=== PATIENT | female | born 1940 | race Caucasian/White ===

== ENCOUNTER 2017-12-03 06:37 | Inpatient (IN) | payer OTHER, SELFPAY ==
[2017-11-10 08:33] VITALS: BMI 28.7
[2017-12-03] VITALS (13 sets, daily range): BP systolic 128–167; BP diastolic 53–77; PULSE 58–94; RESP 12–20; TEMP 36.1–36.7; O2SAT 94–100; BMI 28.5
--- NOTE | 2017-12-03 | DI.RAD.S_ITS ---
PROCEDURE: XR LUMBAR SPINE 2-3V INDICATIONS: L3-4, L5-S1 TLIF TECHNIQUE: 2 views of the lumbar spine were acquired. COMPARISON: [facility], , -SPINE 2-3 VIEWS, 01/25/2016, 12:31. FINDINGS: Bones: AP and lateral intraoperative images showing additional disc spacers and bilateral posterior fusion L3-S1 Soft tissues: Overlying bowel gas pattern is normal. No suspicious soft tissue calcifications. IMPRESSION: Intraoperative documentation of posterior discectomy and fusion lower lumbar spine. Dictated by: Gopi Sage M.D. on 12/03/2017 at 12:36 Approved by: Gopi Sage M.D. on 12/03/2017 at 12:37
[2017-12-03] MEDS: LACTATED RINGERS 1,000 ML 42 ML IV ×3 (07:30→11:16)
--- NOTE | 2017-12-03 07:59 | PM.PREOP ---
Pre-operative Note Interval Note Pre-op Check: History & Physical Reviewed by Physician, Exam Performed and History & Physical exam performed today
[2017-12-03] MEDS: CEFAZOLIN 2 GM/100 ML FROZ.PIGGY IV ×2 (08:00→15:31)
--- NOTE | 2017-12-03 08:44 | SUR.OPER ---
Prone on spine table, head in foam head support, padded chest and pelvic supports, gel pad at knees, lower legs supported by pillows; nipples, genitalia and toes free of pressure, arms secured on foam padded arm boards at <90 degrees abduction. Tape over blanket at thigh secured to table.
[2017-12-03] MEDS: BUPIVACAINE LIPOSOME 266 MG/20 ML VIAL INJ (08:50)
[2017-12-03] MEDS: BUPIVACAINE 0.25% W/ EPI 50 ML VIAL 30 ML INJ (08:52)
--- NOTE | 2017-12-03 11:23 | SUR.OPER ---
4 screws removed, (588.706) and 2 put back in.
--- NOTE | 2017-12-03 12:03 | P.OP_ITS ---
Operative Date/Time/Diagnoses Date of procedure: 12/03/17 Time of procedure: 08:17 Pre-op diagnosis: 1. 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 L3-4, L5-S1 spinal stenosis 3. L3-4, L5-S1 spondylosis with radiculopathy 4. Lumbar scoliosis Post-op diagnosis: same Procedure & Clinicians Procedure: 1. L3-4, L5-S1 posterolateral and posterior interbody fusion 2. L3-4, L5-S1 posterior interbody cage placement 3. L4-5 posterior non-segmental instrumentation removal 4. L4-5 revision laminectomy with exploration of fusion 5. L3-4, L4-5, L5-S1 posterior segmental instrumentation with pedicle screw placement 6. L4-5 posterolatearl fusion 7. [place] of bone marrow from iliac crest through a separate incision 8. Utilization of microsurgical technique and operating microscope Same procedure as scheduled: Yes Indications: Patient has been having chronic back pain and worsening lumbar radiculopathy. She had prior hx of L4-5 fusion with good relief of pain for the last year. Recently her pain worsened again. Patient failed multiple conservative management with worsening pain weakness and numbness in her lower extremity. Patient has been having difficulty performing activity of daily living. After discussing risks benefits of treatment options, patient elected proceed with surgery. Surgeon: Bonita Sy Director Instrumentation: Kim Parada Click Yes if Unassisted: No Anesthesia Type: General Operative Notes Closure Type: primary Specimen(s): none sent Implants & Drains: Globus Revolve screws and Rise cage Applied: catheter Estimated Blood Loss (mL): 200 Blood products transfused: none Procedure in detail: Patient was seen in the preoperative area. Risks and benefits of the surgery was discussed with the patient. Informed consent was obtained from the patient and placed in the chart. Surgical site was marked. Patient was taken to the operative room. General anesthesia was administered. Prophylactic antibiotic was given to the patient less than 30 min before the incision was made. Patient was placed into a prone position on the Richard table. Patient's back was then prepped and draped in the sterile fashion. Time- out was performed at this time. Using patient's previous scar incision was made over the L4-5 interval on the right side. Fascia was incised in line with skin incision. Patient's previously placed hardware over the L4-5 level was identified by dissecting down to the level the hardware using a Bovie and a Manley. The locking caps which was removed using globus screwdriver. The locking jose was then removed from the tulips of the pedicle screws using a Mihir. The pedicle screws were then removed using the screwdriver. The screws were found to have good purchase. The Globus and MARS retractors was then placed into the wound and docked onto the L3, L4 lamina using C-arm guidance. Using microsurgical technique and operating microscope a laminectomy facetectomy was performed by removing the L3 and L4 lamina and the L3-4, L4-5 facet. The disc space at L3-4, L4-5 level was identified next. And a total diskectomy was performed at L3-4, L4-5 with level. The endplates were decorticated using a rasp and shaver. The total diskectomy and decortication was performed at L3-4 L4-5 level in order to to accomplish a L3-4 L4-5 fusion. The local bone from the laminectomy and facetectomy was saved for local bone grafting. After the total diskectomy and decortication was completed, Globus viacell bone graft material was combined with local bone that was harvested earlier. At this time, a separate skin is incision was made over the iliac crest. A Jamshidi needle was inserted into the iliac crest through a separate skin incision. 5 cc of bone marrow aspiration was obtained through the separate skin incision using a Jamshidi needle from the iliac crest. The bone marrow aspiration was combined with local bone and the via cell bone grafting material. The bone grafting material was placed into the L3- 4 L4-5 interbody space along with a expandable cage. Two cages were placed into the L3-4, L4-5 interbody space with once cage at each level. The cage was expanded to its maximum height using the torque limiting screwdriver. At this time a mirror image incision was made on the left side. The fascia was incised in line with the skin incision. Patient's previously placed hardware on the left side was then removed in the same fashion as it was on the right side. The hardware was also found to have good purchase. The fusion mass on the left side was exposed by performing a left-sided hemilaminectomy at L4-5 level. The hemilaminectomy was performed using the Kerrison rongeur to undercut the lamina as well removing additional epidural scar tissue for purpose of decompressing the epidural space. The fusion mass was explored and was found have visible motion indicating pseudoarthrosis. Globus MARS retractor was inserted and docked onto the L3-4 L4-5 L5-S1 posterolateral gutter. Using the power drill, posterior-lateral decortication was performed at L3-4 L4-5 L5-S1 level until bleeding cortical bone was identified. The remaining bone grafting material was placed into the L3-4 L4-5 L5-S1 posterior lateral gutter he order to accomplish posterolateral fusion at the L3-4 L4-5 L5-S1 level. Using the double C-arm technique, pedicle screws were placed into the L3-L4 L5 and S1 pedicles bilaterally. This was done by placing the Jamshidi needle into the pedicles, then placing the guidewires over the Jamshidi needle, and finally placing the cannulated screws over the guidewires bilaterally. Total 8 pedicle screws were placed. After the pedicle screws were placed, 2 titanium rods was locked into the heads of the pedicle screws using locking caps and torque limiting screwdriver. After all the hardware was placed, and confirmed with AP and lateral C-arm imaging, the wound was then irrigated with sterile normal saline and packed with Ray-Estela gauze for 3 min to accomplish hemostasis. After the gauze was removed the deep fascia was closed with #1 Vicryl suture. The subcutaneous layer was closed with 2-0 Vicryl. The skin was closed with skin esther. Patient tolerated the procedure well. There were no complications. Complications: none Condition: stable Disposition: Acute Care Plan for aftercare: Admit to inpatient hospital
[2017-12-03] MEDS: fentaNYL 100 MCG/2 ML INJ 50 MCG IV ×2 (12:33→12:52)
[2017-12-03] MEDS: LORazepam 2 MG/ML SYRINGE 0.25 MG IV (12:34)
[2017-12-03] MEDS: HYDROMORPHONE 0.5 MG INJ IV (14:00)
[2017-12-03] MEDS: SODIUM CHLORIDE 0.9% 1,000 ML 100 ML IV ×2 (14:06→23:05)
[2017-12-03] MEDS: OXYCODONE IR 5 MG TABLET 10 MG PO ×3 (14:06→23:05)
--- NOTE | 2017-12-03 16:30 | PT.IIE ---
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) Spinal stenosis, lumbar region without neurogenic claudication (12/03/17) Arthrodesis status (12/03/17) Surgery Performed Operation Date: 12/03/17 07:45 Actual Procedures p L3-4,L5-S1 TLIF; L4-5 Lumbar HWR, Explor Fusion; Repeat Laminectomy, L3-4, L4-5,L5-S1 PSF w/Instryessica - Bonita Sy MD Surgical History (Last Updated 11/10/17 @ 09:13 by Rosie Rashid RN) History of arthroplasty of left knee (Acute) History of lumbar surgery (Acute) Hx of appendectomy (Acute) Hx of arthroscopy of right knee (Acute) Hx of gastric bypass (Acute) Hx of hand surgery (Acute) S/P epidural steroid injection (Acute) Medical History (Last Updated 11/10/17 @ 09:13 by Rosie Rashid RN) Anemia (Acute) Carotid stenosis (Acute) Easy bruisability (Acute) Fragile skin (Acute) HTN (hypertension) (Acute) Heart murmur (Acute) History of hysterectomy (Acute) Melanoma (Acute) Numbness and tingling of both feet (Acute) Retinal vascular occlusion, left eye (Acute) Rosacea (Acute) Physical Therapy Inpatient Evaluation/Re-Eval M1 PT/OT-IP Prior Functional Status Start: 12/03/17 17:12 Freq: NEEDED Status: Active Protocol: Document 12/03/17 16:30 AB (Rec: 12/03/17 17:23 AB [id number]) Medical Review Prior Functional Status Medical History Reviewed Yes Communication able to make needs known Mobility and Gait pt stated that she is independent with all mobilities and ambulation without AD but occasionally uses a SPC Social History Household Members none Living Arrangements House Number of Floors (Floors) One Floor Number of Stairs To Enter/Railing? 3 steps to enter with bilateral wide rails and can only hold on to one rail at a time Home Environment Standard Height Toilet Tub/Shower Home Equipment Four Wheel Walker Straight Cane Grab Bars Near Toilet Grab Bars In Shower Employment Status Retired Additional Social History Comment stated that her bed is not too high but has a step stool to get up into to get into the bed; stated that she can sit on EOB. M2 PT-IP Current Condition Start: 12/03/17 17:12 Freq: NEEDED Status: Active Protocol: Document 12/03/17 16:30 AB (Rec: 12/03/17 17:23 AB [id number]) Physical Therapy Current Condition Current Condition Evaluation Date 12/03/17 Treatment Diagnosis s/p L3-4, L5S1 TLIF; L4-5 revision laminectomy; difficuties in walking Onset Date 12/03/17 Precautions Lumbar Precautions Log Roll No Twisting Limit Bending Lifting Restriction of 10 lbs Gait Belt above Incisional Area M3 PT-IP Subjective Start: 12/03/17 17:12 Freq: NEEDED Status: Active Protocol: Document 12/03/17 16:30 AB (Rec: 12/03/17 17:23 AB [id number]) Subjective Physical Therapy Visit Type Type Initial Evaluation Visit Start Time 16:30 Visit Stop Time 16:55 Total Visit Minutes 25 Number of MAT MACHINE OPERATOR Visits 0 Physical Therapy Visit Comments Patient Comments i am ready to move Therapy Pain Assessment Pain When Pain Assessed At Rest Pain Present Pain Present Pain Reported Location Lower Back Intensity 5 Scale Used Numeric (1 - 10) Description Spasm Pain Management Techniques Re-positioning M4 PT-IP Mobility and Gait Start: 12/03/17 17:12 Freq: NEEDED Status: Active Protocol: Document 12/03/17 16:30 AB (Rec: 12/03/17 17:23 AB [id number]) PT-Bed Mobility Assessment Rolling Level of Assist Maximal Assistance Supine to Sit Supine to Sit Maximum Assistance 1 Person Assistance Sit to Supine Sit to Supine Maximum Assistance 1 Person Assistance PT-Transfer Assessment Sit to and From Stand Sit to and from Stand Moderate Assistance Equipment Transfer Assistive Device Gait Belt Front Wheeled Walker Gait Assessment Gait Gait Assistance Required: Moderate Assistance Distance (Feet) (feet) 3 Able to Maintain Weight Bearing Status Yes During Gait Assistive Devices Assistive Device Gait Belt Front Wheeled Walker Orthotic/Prosthetic Devices or Brace: No Factors Limiting Gait Function Factors Limiting Gait Function Decreased Activity Tolerance Decreased Strength Difficulty Following Directions Pain Poor Balance Poor Safety Awareness Comments Gait Comments pt took side steps towards HOB . C/o slight dizziness and wants to lay back down in bed. BP: 146/89 PT-Balance Assessment Sitting Balance and Reactions Static Sitting Balance Ability Good Dynamic Sitting Balance Ability Good Standing Balance and Reactions Static Standing Balance Ability Fair Dynamic Standing Balance Ability Fair Device Used FWW M5 PT-IP Objective Assessments Start: 12/03/17 17:12 Freq: NEEDED Status: Active Protocol: Document 12/03/17 16:30 AB (Rec: 12/03/17 17:23 AB [id number]) Orientation Orientation/Cognition Level of Alertness Confusional State Orientation Name Date Place Safety Awareness Decreased Safety Awareness Memory Description Short Term Impaired Gross Range of Motion Lower Extremity ROM Assessment Within Functional Limits Strength Lower Extremity Strength Assessment Within Functional Limits M6 PT-IP Treatment Start: 12/03/17 17:12 Freq: NEEDED Status: Active Protocol: Document 12/03/17 16:30 AB (Rec: 12/03/17 17:23 AB [id number]) Physical Therapy Treatment Education Education Provided Precautions Weight Bearing Status Post-Op Packet Safety M7 PT-IP Assessment and Plan Start: 12/03/17 17:12 Freq: NEEDED Status: Active Protocol: Document 12/03/17 16:30 AB (Rec: 12/03/17 17:23 AB [id number]) PT Summary Assessment and Plan Potential Rehabilitation Potential Fair Status of Condition at Evaluation Evolving Summary Impairments Pain ROM Strength Balance Cognition Bed Mobility Transfers Gait Activity Tolerance Assessment Summary pt just had surgery this morning and was not able to tolerate much activity. pt does not have any assistance at home and will require SNF rehab to improve mobility and independence prior to d/c home . Goals Bed Mobility Goal Standby Assistance Transfer Goal Standby Assistance Front Wheeled Walker Four Wheeled Walker Gait Goal Standby Assistance Front Wheel Walker Four Wheel Walker Gait Distance 100 Other Goals up/down 3 steps with 1 rail SBA Days to Meet Goals 3 Frequency of Treatment Frequency Of Treatment Twice a Day Treatment Plan Physical Therapy Treatment Plan Bed Mobility Training Transfer Training Gait Training Therapeutic Exercise Balance Retraining Post Op Education Discharge Planning Hot or Cold Pack Neuromuscular Re-ed Coordination Retraining Manual Therapy Other Recommendations and Next Treatment ambulation Focus Recommendations To Nursing Amount of Assist Needed 1 Person Assist Discharge Recommendations PT Discharge Recommendations SNF Rehab Equipment Needed for Home Before FWW if pt goes home or is not Discharge safe with 4WW
--- NOTE | 2017-12-03 16:33 | PC.NURSE ---
Ortho: Recieved from pacu, sleepy but does arouse. Can move feet, tailoring teacher equal. Awakens when name called. Initially pain at 4 when arrived but then increased to 10/10 and received oral meds and some dilaudid IVP. Since then has been comfortable. Was able to doze once again. Ppp, feet=/warm, brisk cap refill. Low back dressing is c/d/i. Son at bedside. Hand tailoring teacher equal, oriented x2.
[2017-12-03] MEDS: hydrOXYzine pamoate 25 MG CAPSULE PO (16:34)
[2017-12-03] MEDS: SENNOSIDES 8.6 MG TABLET 17.2 MG PO (23:04)
[2017-12-03] MEDS: DOCUSATE 100 MG CAPSULE PO (23:05)
[2017-12-04] VITALS (7 sets, daily range): BP systolic 113–132; BP diastolic 46–67; PULSE 66–75; RESP 15–19; TEMP 36.9–37.4; O2SAT 92–98
[2017-12-04] MEDS: CEFAZOLIN 2 GM/100 ML FROZ.PIGGY IV (00:29)
[2017-12-04] MEDS: SODIUM CHLORIDE 0.9% 1,000 ML 100 ML IV (00:30)
[2017-12-04] MEDS: OXYCODONE IR 5 MG TABLET 10 MG PO ×3 (04:41→10:44)
[2017-12-04 06:15] LABS: Hematocrit 26.1 % (36-46); Hemoglobin 8.5 g/dL (12.0-16.0)
--- NOTE | 2017-12-04 07:41 | PM.PN.1 ---
Subjective Date Patient Seen: 12/04/17 Time Patient Seen: 07:42 Interval history: Patient seen beside s/p L3-4, L5-S1 TLIF, L4-5 lumbar HWR, exploration of fusion, repeat laminectomy, and L3-S1 PSF with instrumentation POD #1. She is doing well, her pain is well controlled and she denies fevers/chills. She denies any numbness/tingling in her lower extremities. She has not been up with PT yet. Exam Vital Signs (past 8 hours): - 12/03/17 23:45 12/04/17 04:31 Temperature 98.0 F 99.3 F Pulse Rate 71 70 Respiratory Rate 16 16 Blood Pressure 128/61 H 126/59 H Pulse Oximetry 94 93 Oxygen Delivery Method Room Air Oxygen Flow Rate 0 Narrative Exam Narrative: Patient is well-developed well-nourished in no acute distress. Patient alert and oriented x3. Examination surgical dressings clean dry and intact. She has full range of motion of the ankle 2+ pulses and full sensation. Calves are soft and compressible. Objective Labs Result Diagrams: 12/04/17 05:53 Labs: Laboratory Results - last 24 hr 12/04/17 05:53 Hgb 8.5 L Hct 26.1 L Assessment & Plan (1) Lumbar stenosis: Current visit: Yes Status: Acute (2) Osteoarthritis of spine with radiculopathy, lumbar region: Current visit: Yes Status: Acute Plan: Assessment/Plan Narrative: Patient is POD #1 s/p L3-4, L5-S1 TLIF, L4-5 lumbar HWR, exploration of fusion, repeat laminectomy, and L3-S1 PSF with instrumentation at [facility]. We will continue with pain control and SCDs for DVT prophylaxis. She will get up with therapy and if everything goes well possible discharge for tomorrow. All questions were answered at the time of examination. Quality VTE Deep Vein Thrombosis/Pulmonary Embolism Present on Admission: No
--- NOTE | 2017-12-04 07:44 | P.PN_ITS ---
Subjective Date Patient Seen: 12/04/17 Time Patient Seen: 07:42 Interval history: Patient seen beside s/p L3-4, L5-S1 TLIF, L4-5 lumbar HWR, exploration of fusion, repeat laminectomy, and L3-S1 PSF with instrumentation POD #1. She is doing well, her pain is well controlled and she denies fevers/ chills. She denies any numbness/tingling in her lower extremities. She has not been up with PT yet. Exam Vital Signs (past 8 hours): - 12/03/17 23:45 12/04/17 04:31 Temperature 98.0 F 99.3 F Pulse Rate 71 70 Respiratory Rate 16 16 Blood Pressure 128/61 H 126/59 H Pulse Oximetry 94 93 Oxygen Delivery Method Room Air Oxygen Flow Rate 0 Narrative Exam Narrative: Patient is well-developed well-nourished in no acute distress. Patient alert and oriented x3. Examination surgical dressings clean dry and intact. She has full range of motion of the ankle 2+ pulses and full sensation. Calves are soft and compressible. Objective Labs Result Diagrams: 12/04/17 05:53 Labs: Laboratory Results - last 24 hr 12/04/17 05:53 Hgb 8.5 L Hct 26.1 L Assessment & Plan (1) Lumbar stenosis: Current visit: Yes Status: Acute (2) Osteoarthritis of spine with radiculopathy, lumbar region: Current visit: Yes Status: Acute Plan: Assessment/Plan Narrative: Patient is POD #1 s/p L3-4, L5-S1 TLIF, L4-5 lumbar HWR, exploration of fusion, repeat laminectomy, and L3-S1 PSF with instrumentation at [facility]. We will continue with pain control and SCDs for DVT prophylaxis. She will get up with therapy and if everything goes well possible discharge for tomorrow. All questions were answered at the time of examination. Quality VTE Deep Vein Thrombosis/Pulmonary Embolism Present on Admission: No
--- NOTE | 2017-12-04 09:15 | PT.IPTN ---
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) Other spondylosis with radiculopathy, lumbar region (12/03/17) Spinal stenosis, lumbar region without neurogenic claudication (12/03/17) Arthrodesis status (12/03/17) Surgery Performed Operation Date: 12/03/17 07:45 Actual Procedures p L3-4,L5-S1 TLIF; L4-5 Lumbar HWR, Explor Fusion; Repeat Laminectomy, L3-4, L4-5,L5-S1 PSF w/Instru - Bonita Sy MD Physical Therapy Treatment Note M2 PT-IP Current Condition Start: 12/03/17 17:12 Freq: NEEDED Status: Active Protocol: Document 12/03/17 16:30 AB (Rec: 12/03/17 17:23 AB [id number]) Physical Therapy Current Condition Current Condition Evaluation Date 12/03/17 Treatment Diagnosis s/p L3-4, L5S1 TLIF; L4-5 revision laminectomy; difficuties in walking Onset Date 12/03/17 Precautions Lumbar Precautions Log Roll No Twisting Limit Bending Lifting Restriction of 10 lbs Gait Belt above Incisional Area M3 PT-IP Subjective Start: 12/03/17 17:12 Freq: NEEDED Status: Active Protocol: Document 12/04/17 09:15 AB (Rec: 12/04/17 11:43 AB [id number]) Subjective Physical Therapy Visit Type Type Treatment Note Visit Start Time 09:15 Visit Stop Time 09:31 Total Visit Minutes 16 Number of CERTIFIED MEETING PROFESSIONAL Visits 0 Physical Therapy Visit Comments Patient Comments pt just got up with OT but requested to go back to bed; c /o dizziness Therapy Pain Assessment Pain When Pain Assessed At Rest Pain Present Pain Present Pain Reported Location Lower Back Intensity 5 Scale Used Numeric (1 - 10) Pain Management Techniques Timing of Activity with Medications M4 PT-IP Mobility and Gait Start: 12/03/17 17:12 Freq: NEEDED Status: Active Protocol: Document 12/04/17 09:15 AB (Rec: 12/04/17 11:43 AB [id number]) PT-Bed Mobility Assessment Sit to Supine Sit to Supine Maximum Assistance 1 Person Assistance PT-Transfer Assessment Sit to and From Stand Sit to and from Stand Maximum Assistance 1 Person Assistance Use of Upper Extremities Equipment Transfer Assistive Device Gait Belt Front Wheeled Walker Orthotic/Prosthetic Devices or Brace: No Transfers Transfer Destination Bed Transfer Technique was able to take a few steps to get into the bed using FWW Transfer Ability Level of Assist Maximum Assistance 1 Person Assistance Comments Mobility Comments BP sitting on chair prior to transfer: 96/42 BP after transfers: 149/53 M5 PT-IP Objective Assessments Start: 12/03/17 17:12 Freq: NEEDED Status: Active Protocol: Document 12/03/17 16:30 AB (Rec: 12/03/17 17:23 AB [id number]) Orientation Orientation/Cognition Level of Alertness Confusional State Orientation Name Date Place Safety Awareness Decreased Safety Awareness Memory Description Short Term Impaired Gross Range of Motion Lower Extremity ROM Assessment Within Functional Limits Strength Lower Extremity Strength Assessment Within Functional Limits M6 PT-IP Treatment Start: 12/03/17 17:12 Freq: NEEDED Status: Active Protocol: Document 12/04/17 09:15 AB (Rec: 12/04/17 11:43 AB [id number]) Physical Therapy Treatment Education Education Provided Precautions Safety M7 PT-IP Assessment and Plan Start: 12/03/17 17:12 Freq: NEEDED Status: Active Protocol: Document 12/04/17 09:15 AB (Rec: 12/04/17 11:43 AB [id number]) PT Summary Assessment and Plan Potential Rehabilitation Potential Fair Summary Impairments Pain ROM Strength Balance Sensation Cognition Bed Mobility Transfers Gait Activity Tolerance Progress Towards Goals Slow Progress due to Pain Slow Progress due to Activity Tolerance Assessment Summary pt continues to require mod to max A with all mobilities and presents with decreas activity tolerance. pt will require SNF rehab to improve strength and function. Goals Bed Mobility Goal Standby Assistance Transfer Goal Standby Assistance Front Wheeled Walker Four Wheeled Walker Gait Goal Standby Assistance Front Wheel Walker Four Wheel Walker Gait Distance 100 Other Goals up/down 3 steps with 1 rail SBA Days to Meet Goals 3 Frequency of Treatment Frequency Of Treatment Twice a Day Treatment Plan Physical Therapy Treatment Plan Bed Mobility Training Transfer Training Gait Training Therapeutic Exercise Balance Retraining Post Op Education Discharge Planning Hot or Cold Pack Neuromuscular Re-ed Coordination Retraining Manual Therapy Recommendations To Nursing Amount of Assist Needed 1 Person Assist Discharge Recommendations PT Discharge Recommendations SNF Rehab Equipment Needed for Home Before FWW if pt goes home or is not Discharge safe with 4WW
[2017-12-04] MEDS: DOCUSATE 100 MG CAPSULE PO ×2 (09:39→21:18)
--- NOTE | 2017-12-04 10:14 | OT.IP.EVAL ---
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) Other spondylosis with radiculopathy, lumbar region (12/03/17) Spinal stenosis, lumbar region without neurogenic claudication (12/03/17) Arthrodesis status (12/03/17) Surgery Performed Operation Date: 12/03/17 07:45 Actual Procedures p L3-4,L5-S1 TLIF; L4-5 Lumbar HWR, Explor Fusion; Repeat Laminectomy, L3-4, L4-5,L5-S1 PSF w/Instryessica Sy MD Past Medical History (Last Updated 11/10/17 @ 09:13 by Rosie Rashid RN) Anemia (Acute) Carotid stenosis (Acute) Easy bruisability (Acute) Fragile skin (Acute) HTN (hypertension) (Acute) Heart murmur (Acute) History of hysterectomy (Acute) Melanoma (Acute) Numbness and tingling of both feet (Acute) Retinal vascular occlusion, left eye (Acute) Rosacea (Acute) Surgical History (Last Updated 11/10/17 @ 09:13 by Rosie Rashid RN) History of arthroplasty of left knee (Acute) History of lumbar surgery (Acute) Hx of appendectomy (Acute) Hx of arthroscopy of right knee (Acute) Hx of gastric bypass (Acute) Hx of hand surgery (Acute) S/P epidural steroid injection (Acute) Occupational Therapy Inpatient Evaluation/Re-Eval M1 PT/OT-IP Prior Functional Status Start: 12/03/17 17:12 Freq: NEEDED Status: Active Protocol: Document 12/03/17 16:30 AB (Rec: 12/03/17 17:23 AB [id number]) Medical Review Prior Functional Status Medical History Reviewed Yes Communication able to make needs known Mobility and Gait pt stated that she is independent with all mobilities and ambulation without AD but occasionally uses a SPC Social History Household Members none Living Arrangements House Number of Floors (Floors) One Floor Number of Stairs To Enter/Railing? 3 steps to enter with bilateral wide rails and can only hold on to one rail at a time Home Environment Standard Height Toilet Tub/Shower Home Equipment Four Wheel Walker Straight Cane Grab Bars Near Toilet Grab Bars In Shower Employment Status Retired Additional Social History Comment stated that her bed is not too high but has a step stool to get up into to get into the bed; stated that she can sit on EOB. M1 PT/OT-IP Prior Functional Status Start: 12/04/17 09:56 Freq: NEEDED Status: Active Protocol: Document 12/04/17 09:29 ADH (Rec: 12/04/17 10:14 ADH [email or web address]) Medical Review Prior Functional Status Medical History Reviewed Yes Communication able to make needs known Mobility and Gait pt stated that she is independent with all mobilities and ambulation without AD but occasionally uses a SPC Activities of Daily Living and IADL's Pt reports she was previously mod I with all tasks, including taking care of her dog. Social History Household Members none Living Arrangements House Number of Stairs To Enter/Railing? 3 with hand rail Home Environment Standard Height Toilet Walk in Shower Home Equipment Shower Seat without Backrest Grab Bars In Shower Employment Status Retired Additional Social History Comment no assistance available at home M2 OT-IP Current Condition Start: 12/04/17 09:56 Freq: Status: Active Protocol: Document 12/04/17 09:29 ADH (Rec: 12/04/17 10:14 [facility] [id number]) Occupational Therapy Current Condition Current Condition Evaluation Date 12/04/17 Treatment Diagnosis L3-L5 Diagnosis Onset Date 18 Post Operative Precautions Lumbar Precautions Log Roll No Twisting Limit Bending Lifting Restriction of 10 lbs Gait Belt above Incisional Area M3 OT- IP Subjective and Pain Start: 12/04/17 09:56 Freq: Status: Active Protocol: Document 12/04/17 09:29 ADH (Rec: 12/04/17 10:14 ADH [email or web address]) OT- Subjective Occupational Therapy Visit Type Type Initial Evaluation Visit Start Time 08:41 Visit Stop Time 09:29 Total Visit Minutes 48 OT Pain Assessment Pain When Pain Assessed During Mobility Pain Present Pain Present Pain Reported Location Lower Back Intensity 4 Scale Used Numeric (1 - 10) Management Techniques Distraction Elevation Modification of Treatment Re-positioning Timing of Activity with Medications M4 OT- IP ADL's Start: 12/04/17 09:56 Freq: Status: Active Protocol: Document 12/04/17 09:29 ADH (Rec: 12/04/17 10:14 ADH [email or web address]) OT [id number] General Evaluation Self-Feeding Ability Independent OT ADL-Dressing General Eval Lower Body Dressing Ability Maximum Assistance Areas Needing Assistance Socks Shoes OT ADL-Toileting General Evaluation Toileting Ability Maximum Assistance Comments OT Toileting Comments catheter. M6 OT- IP Functional Cognition Start: 12/04/17 09:56 Freq: Status: Active Protocol: Document 12/04/17 09:29 ADH (Rec: 12/04/17 10:14 ADH [email or web address]) Cognitive Factors Limiting Selfcare Function Cognitive Ability Level of Alertness Alert Patient Orientation Name Place Situation Ability to Follow Commands Able to Follow One Step Commands Memory Description No Deficits Noted Safety Awareness No Deficits Noted Problem Solving Ability No deficits Noted Executive Function Ability No Deficits Noted Cognitive Comments Cognitive Assessment Comments pt alert and oriented at begining of session, decrease in alertness and ability to follow multi-step directions with decreased blood pressure, alertness returned with repositioning, fluids and rest . OT- Vision and Hearing OT- Hearing Assessment OT- Hearing Assessment WFL OT- Vision Assessment Visual Acuity Glasses For Reading Vision Assessment Comments glasses for distance/ television only. M7 OT- IP Mobility and Balance Start: 12/04/17 09:56 Freq: Status: Active Protocol: Document 12/04/17 09:29 ADH (Rec: 12/04/17 10:14 ADH [email or web address]) OT- Bed Mobility Assessment Rolling Type of Rolling Log Rolling Level of Assistance Moderate Assistance Supine to Sit Supine to Sit Assist Moderate Assistance Sit to Supine Sit to Supine Assist Moderate Assistance Scooting Scooting to Edge of Bed Minimal Assistance OT-Transfer Assessment Sit to and From Stand Sit to and from Stand Minimal Assistance Transfers Transfer Ability Minimal Assistance 2 Person Assistance Technique Transfer Destination Chair Transfer Technique Stand Step Pivot Devices Transfer Assistive Devices Gait Belt Front Wheeled Walker Comments Mobility Comments Pt able to stand with 1 PA, difficulty maintaining balance and decreasing blood pressure , 2nd person assisting for safety. Pt able to step pivot EOB<--> recliner with FWW and small shuffling steps. Pt limited by pain, fatigue, alertness, and blood pressure. M8 OT- IP Objective Assessments Start: 12/04/17 09:56 Freq: Status: Active Protocol: Document 12/04/17 09:29 ADH (Rec: 12/04/17 10:14 ADH [email or web address]) OT Gross Range of Motion Upper Extremity Range of Motion Assessment Within Functional Limits OT Strength Upper Extremity Strength Assessment Within Functional Limits OT- Coordination Assessment Upper Extremity Finger Tapping Test Within Functional Limits M9 OT- IP Assessment and Plan Start: 12/04/17 09:56 Freq: Status: Active Protocol: Document 12/04/17 09:29 ADH (Rec: 12/04/17 10:14 ADH [email or web address]) OT Summary Assessment and Plan Potential Rehabilitation Potential Excellent Analytic Complexity at Evaluation Low Summary OT Impairments Pain Balance Coordination Functional Cognition Assessment Summary Pt presents well below reported baseline post op day 1, complicated by blood pressure and fatigue/pain. Pt needed A of 1-2 to safely transfer d/t changes in cognition and medical status during transfer. Pt will have no assistance at home and is not safe to return home at this level. Pt is most appropriate for SNF at this time. Treatment Plan OT Treatment Plan ADL Training Functional Mobility Other Treatment Recommendations and Next adaptive equipment, toileting, Treatment Focus funct transfers Discharge Recommendations OT Discharge Recommendations SNF Rehab
--- NOTE | 2017-12-04 13:16 | CM.DPC ---
Clnicals faxed to [facility] and to [place] for SNF auth per Maricel.
--- NOTE | 2017-12-04 13:54 | CM.DANOTE ---
Addendum entered by EM Qureshi 12/04/17 15:17: ADD: Call from Jennifer at [facility] and they can accept the pt at d/c pending [place] SNF auth. BF Original Note: Patient is a 77 year old female who was admitted on 12/03/17 for surgery. Pt has [facility] for insurance and her PCP is Dr. Bradley. EMR was reviewed. Per MD, pt tolerated procedure well. Per PT/OT, pt lives alone and could benefit from SNF rehab before safe d/c home. SW met bedside with pt and explained role and she confirmed that she lives in [place] alone but has local son who is supportive and was just bedside visiting. Pt is Independent with ADL's at baseline and has a hx of SNF rehab at [facility] in 2015. Pt states that she feels SNF is needed at d/c and preference is [facility] and SW discussed the need for [place] SNF auth and pt acknowledges remembering this process. Pt requests SW begin process of faxing [facility] and [facility] for SNF auth. Daphne CEBALLOS kindly faxed clinicals to [facility] and [facility] and SW called and left a msg for admissions at [facility] to review new referral. Plan: SW to follow for [facility] review for SNF auth and [facility] review for possible placement. PASRR to be completed once [place] auth is obtained. EM Qureshi Discharge Planning/Care Management CM Discharge Assessment Start: 12/04/17 13:52 Freq: Status: Active Protocol: Document 12/04/17 13:53 BF (Rec: 12/04/17 13:54 [id number]) Discharge Planning Assessment Assigned Event Marketing Manager EM History Provided By Patient Medical Record Has Patient been admitted in last 30 No days? Is this patient on Medicare? Yes Is the admit diagnosis the same? Yes Prior Living Arrangements House Household Members none Type of transporation used prior to Drives own vehicle admit Independent with ADL's Yes Is patient alert and oriented? Yes Needs Assistance With Home Chores / Shopping Caregiver for Another No DME Already Rented / Owned FWW / Walker Cane Patient Discharge Plan Description Shelter Facility Community Services Needed at Discharge Physical Therapy Occupational Therapy Referrals Initiated Shelter Comment [facility] reviewing clinicals Discharge Plan Shelter Facility Transportation Arrangement If accepted, [facility] can provide transport with w/c van If patient plan is SNF: Has PASSR been No: Waiting [facility] auth completed? Review Status In Process Next Review Type Discharge Review
--- NOTE | 2017-12-04 15:00 | PT.IPTN ---
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) Other spondylosis with radiculopathy, lumbar region (12/03/17) Spinal stenosis, lumbar region without neurogenic claudication (12/03/17) Arthrodesis status (12/03/17) Surgery Performed Operation Date: 12/03/17 07:45 Actual Procedures p L3-4,L5-S1 TLIF; L4-5 Lumbar HWR, Explor Fusion; Repeat Laminectomy, L3-4, L4-5,L5-S1 PSF w/Instru - Bonita Sy MD Physical Therapy Treatment Note M2 PT-IP Current Condition Start: 12/03/17 17:12 Freq: NEEDED Status: Active Protocol: Document 12/03/17 16:30 AB (Rec: 12/03/17 17:23 AB [id number]) Physical Therapy Current Condition Current Condition Evaluation Date 12/03/17 Treatment Diagnosis s/p L3-4, L5S1 TLIF; L4-5 revision laminectomy; difficuties in walking Onset Date 12/03/17 Precautions Lumbar Precautions Log Roll No Twisting Limit Bending Lifting Restriction of 10 lbs Gait Belt above Incisional Area M3 PT-IP Subjective Start: 12/03/17 17:12 Freq: NEEDED Status: Active Protocol: Document 12/04/17 15:00 AB (Rec: 12/04/17 16:07 AB [id number]) Subjective Physical Therapy Visit Type Type Treatment Note Visit Start Time 15:00 Visit Stop Time 15:24 Total Visit Minutes 24 Number of FINANCIAL MANAGER Visits 0 Physical Therapy Visit Comments Patient Comments pt requires motivation to participate Therapy Pain Assessment Pain When Pain Assessed During Mobility Pain Present Pain Present Pain Reported Location Lower Back Intensity 8 Scale Used Numeric (1 - 10) Pain Behaviors Facial Grimacing Guarding Pain Management Techniques Timing of Activity with Medications M4 PT-IP Mobility and Gait Start: 12/03/17 17:12 Freq: NEEDED Status: Active Protocol: Document 12/04/17 15:00 AB (Rec: 12/04/17 16:07 AB [id number]) PT-Bed Mobility Assessment Rolling Type of Rolling Log Rolling Level of Assist Maximal Assistance 1 Person Assistance Supine to Sit Supine to Sit Maximum Assistance 1 Person Assistance Scooting Scooting to Edge of Bed Maximum Assistance PT-Transfer Assessment Sit to and From Stand Sit to and from Stand Moderate Assistance Maximum Assistance 1 Person Assistance Equipment Transfer Assistive Device Gait Belt Front Wheeled Walker Orthotic/Prosthetic Devices or Brace: No Transfers Transfer Destination Chair Transfer Technique pt took ~ 4 steps to get into the chair using FWW Transfer Ability Level of Assist Moderate Assistance Maximum Assistance 1 Person Assistance Comments Mobility Comments pt refused to do ambulation and further activites after transfer but agreed to sit up on chair for ~ 30 min to 1 hour. Gait Assessment Comments Gait Comments pt refused to ambulate PT-Balance Assessment Sitting Balance and Reactions Static Sitting Balance Ability Good Dynamic Sitting Balance Ability Fair Standing Balance and Reactions Static Standing Balance Ability Fair Dynamic Standing Balance Ability Poor Device Used FWW M5 PT-IP Objective Assessments Start: 12/03/17 17:12 Freq: NEEDED Status: Active Protocol: Document 12/03/17 16:30 AB (Rec: 12/03/17 17:23 AB [id number]) Orientation Orientation/Cognition Level of Alertness Confusional State Orientation Name Date Place Safety Awareness Decreased Safety Awareness Memory Description Short Term Impaired Gross Range of Motion Lower Extremity ROM Assessment Within Functional Limits Strength Lower Extremity Strength Assessment Within Functional Limits M6 PT-IP Treatment Start: 12/03/17 17:12 Freq: NEEDED Status: Active Protocol: Document 12/04/17 15:00 AB (Rec: 12/04/17 16:07 AB [id number]) Physical Therapy Treatment Education Education Provided Precautions Safety Other Treatments Other Treatment Performed pt educated on importance of mobility M7 PT-IP Assessment and Plan Start: 12/03/17 17:12 Freq: NEEDED Status: Active Protocol: Document 12/04/17 15:00 AB (Rec: 12/04/17 16:07 AB [id number]) PT Summary Assessment and Plan Potential Rehabilitation Potential Fair Summary Impairments Pain ROM Strength Balance Cognition Bed Mobility Transfers Gait Activity Tolerance Progress Towards Goals Slow Progress due to Pain Slow Progress due to Activity Tolerance Assessment Summary pt continues to require 1-2 person assist with mobility and unable to tolerate much activity. pt will require SNF rehab. Goals Bed Mobility Goal Standby Assistance Transfer Goal Standby Assistance Front Wheeled Walker Four Wheeled Walker Gait Goal Standby Assistance Front Wheel Walker Four Wheel Walker Gait Distance 100 Other Goals up/down 3 steps with 1 rail SBA Days to Meet Goals 3 Frequency of Treatment Frequency Of Treatment Twice a Day Treatment Plan Physical Therapy Treatment Plan Bed Mobility Training Transfer Training Gait Training Therapeutic Exercise Balance Retraining Post Op Education Discharge Planning Hot or Cold Pack Neuromuscular Re-ed Coordination Retraining Manual Therapy Recommendations To Nursing Amount of Assist Needed 1 Person Assist 2 Person Assist Discharge Recommendations PT Discharge Recommendations SNF Rehab
[2017-12-04] MEDS: hydrOXYzine pamoate 25 MG CAPSULE PO (16:14)
[2017-12-04] MEDS: OXYCODONE IR 5 MG TABLET PO ×2 (16:14→21:58)
[2017-12-04] MEDS: ACETAMINOPHEN 325 MG TABLET 650 MG PO ×2 (16:14→21:57)
[2017-12-04] MEDS: SENNOSIDES 8.6 MG TABLET 17.2 MG PO (21:18)
[2017-12-05] VITALS (8 sets, daily range): BP systolic 108–162; BP diastolic 58–74; PULSE 70–85; RESP 15–18; TEMP 36.2–37.5; O2SAT 92–95
[2017-12-05] MEDS: OXYCODONE IR 5 MG TABLET PO (01:32)
[2017-12-05] MEDS: OXYCODONE IR 5 MG TABLET 10 MG PO (06:30)
[2017-12-05] MEDS: DOCUSATE 100 MG CAPSULE PO ×2 (08:29→20:09)
[2017-12-05] MEDS: ACETAMINOPHEN 325 MG TABLET 650 MG PO ×3 (08:30→23:55)
--- NOTE | 2017-12-05 08:39 | P.PN_ITS ---
Subjective Date Patient Seen: 12/05/17 Time Patient Seen: 08:38 Interval history: POD #2 s/p L3-4, L5-S1 TLIF, L4-5 lumbar HWR, exploration of fusion, repeat laminectomy, and L3-S1 PSF with instrumentation with Dr. Sy. Her pain is well controlled. She is complaining of radiculopathy down the right side. No previous allergies or problems with steroids, just noted weight gain. She has had limited ambulation and only getting up in her room. Iyer is still in place. Exam Vital Signs (past 8 hours): - 12/05/17 00:41 12/05/17 01:42 12/05/17 04:50 Temperature 99.5 F 98.2 F 98.5 F Pulse Rate 74 Respiratory Rate 18 Blood Pressure 141/63 H Pulse Oximetry 95 Oxygen Delivery Method Room Air Oxygen Flow Rate 0 Narrative Exam Narrative: Patient is sitting in bedside chair no acute distress. Dressing on back is CDI. Calves are soft, and compressible. She did have some tenderness on the right calf but there are no signs of swelling and redness. Calves appear symmetrical. Pulses are symmetrical. Sensation intact to light touch throughout bilateral lower extremities. She is able to actively dorsiflex and plantar flex. Objective Labs Result Diagrams: 12/04/17 05:53 Assessment & Plan Post-op (1) Osteoarthritis of spine with radiculopathy, lumbar region: Current Visit: Yes Status: Acute (2) Lumbar stenosis: Current Visit: Yes Status: Acute (3) S/P lumbar fusion: Current Visit: Yes Status: Acute Postoperative Procedures Operation Date: 12/03/17 07:45 Actual Procedures Side Surgeon p L3-4,L5-S1 TLIF; L4-5 Lumbar HWR, Explor Fusion; Repeat Laminectomy, L3-4, L4- 5,L5-S1 PSF w/Instryessica Sy MD POD #2 s/p L3-4, L5-S1 TLIF, L4-5 lumbar HWR, exploration of fusion, repeat laminectomy, and L3-S1 PSF with instrumentation with Dr. Sy. Will start Decadron 10 mg now and 4 mg every 6 hr for 24 hr burst. This is to treat her radiculopathy and pain. Once patient is more mobile will DC Iyer. Continue with current pain management. Patient is slow to recover, will likely discharge in next 1-2 days once ambulating safely with adequate pain control. Time Spent With Patient less than 15 minutes Quality VTE Deep Vein Thrombosis/Pulmonary Embolism Present on Admission: No
[2017-12-05] MEDS: DEXAMETHASONE 4 MG TABLET 10 MG PO (08:46)
--- NOTE | 2017-12-05 09:22 | CM.DPC ---
Addendum entered by EM Simpson 12/05/17 10:35: [facility]/Laurie: supportive employment case manager would like to review patient for one more day to see how patient does on post-op day 3. Episode will remain open with request that all updated prog, PT/OT notes be provided to [facility] enrollment eligibility representative. [facility] Weekend CM/Kaci made aware of open SNF request. Plan: CM to fax updated clinicals to [facility] end of today if available, or Friday enrollment eligibility representative. Original Note: SNF Planning: Called [facility]/Laurie: As patient was a planned surgery, SNF Auth request was forwarded to the employee welfare manager to review. He is in office today and is expected to have decision today. Plan: Patient has been accepted to [facility] pending [facility] SNF Auth. CM to follow up with Laith for authorization. If approved, PASRR to be completed.
--- NOTE | 2017-12-05 10:07 | PT.IPTN ---
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) Other spondylosis with radiculopathy, lumbar region (12/03/17) Spinal stenosis, lumbar region without neurogenic claudication (12/03/17) Arthrodesis status (12/03/17) Surgery Performed Operation Date: 12/03/17 07:45 Actual Procedures p L3-4,L5-S1 TLIF; L4-5 Lumbar HWR, Explor Fusion; Repeat Laminectomy, L3-4, L4-5,L5-S1 PSF w/Instru - Bonita Sy MD Physical Therapy Treatment Note M2 PT-IP Current Condition Start: 12/03/17 17:12 Freq: NEEDED Status: Active Protocol: Document 12/03/17 16:30 AB (Rec: 12/03/17 17:23 AB [id number]) Physical Therapy Current Condition Current Condition Evaluation Date 12/03/17 Treatment Diagnosis s/p L3-4, L5S1 TLIF; L4-5 revision laminectomy; difficuties in walking Onset Date 12/03/17 Precautions Lumbar Precautions Log Roll No Twisting Limit Bending Lifting Restriction of 10 lbs Gait Belt above Incisional Area M3 PT-IP Subjective Start: 12/03/17 17:12 Freq: NEEDED Status: Active Protocol: Document 12/05/17 10:07 AB (Rec: 12/05/17 12:34 AB [id number]) Subjective Physical Therapy Visit Type Type Treatment Note Visit Start Time 10:07 Visit Stop Time 10:37 Total Visit Minutes 30 Number of CURATORIAL ASSISTANT Visits 0 Physical Therapy Visit Comments Patient Comments pt stated that she feels better Therapy Pain Assessment Pain When Pain Assessed At Rest Pain Present Pain Present Pain Reported Location Lower Back Intensity 4 Scale Used Numeric (1 - 10) Pain Management Techniques Re-positioning Timing of Activity with Medications M4 PT-IP Mobility and Gait Start: 12/03/17 17:12 Freq: NEEDED Status: Active Protocol: Document 12/05/17 10:07 AB (Rec: 12/05/17 12:34 AB [id number]) PT-Bed Mobility Assessment Supine to Sit Supine to Sit Maximum Assistance PT-Transfer Assessment Sit to and From Stand Sit to and from Stand Moderate Assistance 1 Person Assistance Use of Upper Extremities Equipment Transfer Assistive Device Gait Belt Front Wheeled Walker Orthotic/Prosthetic Devices or Brace: No Transfers Transfer Destination Chair Transfer Technique Stand Step Pivot Transfer Ability Level of Assist Moderate Assistance Gait Assessment Gait Gait Assistance Required: Moderate Assistance Distance (Feet) (feet) 30 Able to Maintain Weight Bearing Status Yes During Gait Assistive Devices Assistive Device Gait Belt Front Wheeled Walker Orthotic/Prosthetic Devices or Brace: No Gait Deviations General Gait Pattern Decreased Stride Length Decreased Feet Clearance Factors Limiting Gait Function Factors Limiting Gait Function Decreased Activity Tolerance Decreased Strength Pain Poor Balance Poor Safety Awareness M5 PT-IP Objective Assessments Start: 12/03/17 17:12 Freq: NEEDED Status: Active Protocol: Document 12/05/17 10:07 AB (Rec: 12/05/17 12:34 AB [id number]) Orientation Orientation/Cognition Level of Alertness Alert Orientation Name Age Place Situation Safety Awareness Decreased Safety Awareness Memory Description Short Term Impaired M6 PT-IP Treatment Start: 12/03/17 17:12 Freq: NEEDED Status: Active Protocol: Document 12/05/17 10:07 AB (Rec: 12/05/17 12:34 AB [id number]) Physical Therapy Treatment Education Education Provided Precautions Safety M7 PT-IP Assessment and Plan Start: 12/03/17 17:12 Freq: NEEDED Status: Active Protocol: Document 12/05/17 10:07 AB (Rec: 12/05/17 12:34 AB [id number]) PT Summary Assessment and Plan Potential Rehabilitation Potential Fair Summary Impairments Pain ROM Strength Balance Coordination Cognition Bed Mobility Transfers Gait Activity Tolerance Progress Towards Goals Slow Progress due to Pain Assessment Summary pt is progressing slowly and able to ambulate today using FWW ~ 30 ft mod A and cuesbut continues to require max A with bed mobility. pt will benefit from SNF rehab to improve mobility and independence. Goals Bed Mobility Goal Standby Assistance Transfer Goal Standby Assistance Front Wheeled Walker Four Wheeled Walker Gait Goal Standby Assistance Front Wheel Walker Four Wheel Walker Gait Distance 100 Other Goals up/down 3 steps with 1 rail SBA Days to Meet Goals 3 Frequency of Treatment Frequency Of Treatment Twice a Day Treatment Plan Physical Therapy Treatment Plan Bed Mobility Training Transfer Training Gait Training Therapeutic Exercise Balance Retraining Post Op Education Discharge Planning Hot or Cold Pack Neuromuscular Re-ed Coordination Retraining Manual Therapy Recommendations To Nursing Amount of Assist Needed 1 Person Assist 2 Person Assist Discharge Recommendations PT Discharge Recommendations SNF Rehab
--- NOTE | 2017-12-05 11:28 | OT.IP.TRT ---
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) Other spondylosis with radiculopathy, lumbar region (12/03/17) Spinal stenosis, lumbar region without neurogenic claudication (12/03/17) Arthrodesis status (12/03/17) Surgery Performed Operation Date: 12/03/17 07:45 Actual Procedures p L3-4,L5-S1 TLIF; L4-5 Lumbar HWR, Explor Fusion; Repeat Laminectomy, L3-4, L4-5,L5-S1 PSF w/Instru - Bonita Sy MD Occupational Therapy Treatment Note M2 OT-IP Current Condition Start: 12/04/17 09:56 Freq: Status: Active Protocol: Document 12/05/17 11:16 ADH (Rec: 12/05/17 11:28 ADH [id number]) Occupational Therapy Current Condition Current Condition Evaluation Date 12/04/17 Treatment Diagnosis L3-L5 Diagnosis Onset Date 12/03/17 Post Operative Precautions Lumbar Precautions Log Roll No Twisting Limit Bending Lifting Restriction of 10 lbs Gait Belt above Incisional Area M3 OT- IP Subjective and Pain Start: 12/04/17 09:56 Freq: Status: Active Protocol: Document 12/05/17 11:16 ADH (Rec: 12/05/17 11:28 ADH [id number]) OT- Subjective Occupational Therapy Visit Type Type Treatment Note Visit Start Time 08:55 Visit Stop Time 09:22 Total Visit Minutes 27 Notes Pt requesting return to bed, declining further am bADLs at this time 2' fatigue and discomfort OT Pain Assessment Pain When Pain Assessed During Mobility Pain Present Pain Present Pain Reported Location Lower Back Intensity 3 Scale Used Numeric (1 - 10) Pain Behaviors Guarding Holding Area Management Techniques Distraction Modification of Treatment Re-positioning Timing of Activity with Medications M4 OT- IP ADL's Start: 12/04/17 09:56 Freq: Status: Active Protocol: Document 12/05/17 11:16 ADH (Rec: 12/05/17 11:28 ADH [id number]) OT LIH-Xxhj-Xdjtarl General Evaluation Self-Feeding Ability Independent OT ADL-Toileting General Evaluation Toileting Ability Maximum Assistance Comments OT Toileting Comments catheter d/t decreased mobility. Pt would be able to transfer to/from [facility] next to bed, is not yet ambulating to/ from toilet (8 feet) this session. Pt declined when encouraged to trial transfer. M6 OT- IP Functional Cognition Start: 12/04/17 09:56 Freq: Status: Active Protocol: Document 12/04/17 09:29 ADH (Rec: 12/04/17 10:14 ADH [id number]) Cognitive Factors Limiting Selfcare Function Cognitive Ability Level of Alertness Alert Patient Orientation Name Place Situation Ability to Follow Commands Able to Follow One Step Commands Memory Description No Deficits Noted Safety Awareness No Deficits Noted Problem Solving Ability No deficits Noted Executive Function Ability No Deficits Noted Cognitive Comments Cognitive Assessment Comments pt alert and oriented at begining of session, decrease in alertness and ability to follow multi-step directions with decreased blood pressure, alertness returned with repositioning, fluids and rest . OT- Vision and Hearing OT- Hearing Assessment OT- Hearing Assessment WFL OT- Vision Assessment Visual Acuity Glasses For Reading Vision Assessment Comments glasses for distance/ television only. M7 OT- IP Mobility and Balance Start: 12/04/17 09:56 Freq: Status: Active Protocol: Document 12/05/17 11:16 ADH (Rec: 12/05/17 11:28 ADH [id number]) OT- Bed Mobility Assessment Rolling Type of Rolling Log Rolling Sit to Supine Sit to Supine Assist Moderate Assistance Scooting Scooting to Edge of Bed Minimal Assistance OT-Transfer Assessment Sit to and From Stand Sit to and from Stand Minimal Assistance Transfers Transfer Ability Minimal Assistance Technique Transfer Destination Bed Chair Transfer Technique Stand Step Pivot Comments Mobility Comments Pt able to stand from chair and step transfer to bed with FWW and 1 person min A with small steps. Increased upright posture over previous session . No confusion or light headedness. M8 OT- IP Objective Assessments Start: 12/04/17 09:56 Freq: Status: Active Protocol: Document 12/04/17 09:29 ADH (Rec: 12/04/17 10:14 ADH [id number]) OT Gross Range of Motion Upper Extremity Range of Motion Assessment Within Functional Limits OT Strength Upper Extremity Strength Assessment Within Functional Limits OT- Coordination Assessment Upper Extremity Finger Tapping Test Within Functional Limits M9 OT- IP Assessment and Plan Start: 12/04/17 09:56 Freq: Status: Active Protocol: Document 12/05/17 11:16 ADH (Rec: 12/05/17 11:28 ADH [id number]) OT Summary Assessment and Plan Potential Rehabilitation Potential Excellent Analytic Complexity at Evaluation Low Summary OT Impairments Pain Balance Coordination Functional Cognition Assessment Summary Pt continues to present with limited initation of functional mobility 2' pain and fatigue. Pt agreeable to all presented education and encouragement re: mobilization s/p surgery, but it does not translate into significantly increased time OOB or ambulating. Pt with previous history of low activity tolerance, which may impact her recovery progression. Pt has no support at home, and currently continues to present well below baseline. Pt is not safe to go home at present levels as she is unable to ambulate independently nor perform self-care including toileting. Pt will benefit from SNF stay Goals Toileting Goal Standby Assistance Toilet Transfer Goal Contact Guard Assistance
[2017-12-05] MEDS: DEXAMETHASONE 4 MG TABLET PO ×3 (16:14→23:55)
--- NOTE | 2017-12-05 16:38 | PT.IPTN ---
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) Other spondylosis with radiculopathy, lumbar region (12/03/17) Spinal stenosis, lumbar region without neurogenic claudication (12/03/17) Arthrodesis status (12/03/17) Surgery Performed Operation Date: 12/03/17 07:45 Actual Procedures p L3-4,L5-S1 TLIF; L4-5 Lumbar HWR, Explor Fusion; Repeat Laminectomy, L3-4, L4-5,L5-S1 PSF w/Instru - Bonita Sy MD Physical Therapy Treatment Note M2 PT-IP Current Condition Start: 12/03/17 17:12 Freq: NEEDED Status: Active Protocol: Document 12/03/17 16:30 AB (Rec: 12/03/17 17:23 AB [id number]) Physical Therapy Current Condition Current Condition Evaluation Date 12/03/17 Treatment Diagnosis s/p L3-4, L5S1 TLIF; L4-5 revision laminectomy; difficuties in walking Onset Date 12/03/17 Precautions Lumbar Precautions Log Roll No Twisting Limit Bending Lifting Restriction of 10 lbs Gait Belt above Incisional Area M3 PT-IP Subjective Start: 12/03/17 17:12 Freq: NEEDED Status: Active Protocol: Document 12/05/17 16:38 AB (Rec: 12/05/17 17:17 AB [id number]) Subjective Physical Therapy Visit Type Type Treatment Note Visit Start Time 16:38 Visit Stop Time 16:55 Total Visit Minutes 18 Number of FUNERAL DRIVER Visits 0 Physical Therapy Visit Comments Patient Comments pt agreeable to get up Therapy Pain Assessment Pain When Pain Assessed At Rest Pain Present Pain Present Pain Reported Location Lower Back Intensity 4 Scale Used Numeric (1 - 10) M4 PT-IP Mobility and Gait Start: 12/03/17 17:12 Freq: NEEDED Status: Active Protocol: Document 12/05/17 16:38 AB (Rec: 12/05/17 17:17 AB [id number]) PT-Bed Mobility Assessment Rolling Type of Rolling Log Rolling Level of Assist Moderate Assistance 1 Person Assistance Supine to Sit Supine to Sit Moderate Assistance 1 Person Assistance Bedrails PT-Transfer Assessment Sit to and From Stand Sit to and from Stand Minimal Assistance 1 Person Assistance Use of Upper Extremities Transfers Transfer Destination Toilet Transfer Technique pt ambulated towards the toilet using FWW Transfer Ability Level of Assist Minimal Assistance 1 Person Assistance Gait Assessment Gait Gait Assistance Required: Minimum Assistance Distance (Feet) (feet) 12 Able to Maintain Weight Bearing Status Yes During Gait Assistive Devices Assistive Device Gait Belt Front Wheeled Walker Orthotic/Prosthetic Devices or Brace: No Gait Deviations General Gait Pattern Decreased Stride Length Decreased Feet Clearance Factors Limiting Gait Function Factors Limiting Gait Function Decreased Activity Tolerance Decreased Strength Pain Poor Balance Poor Safety Awareness Comments Gait Comments pt ambulated from bed to toilet using FWW min A and cues . pt was able to maintain standing balance requiring min A while doing hygiene care and brief management. pt needs assist with brief management. pt ambulated towards the chair using FWW ~ 10 ft min A. set up pt for dinner. call light and table placed within reach. M5 PT-IP Objective Assessments Start: 12/03/17 17:12 Freq: NEEDED Status: Active Protocol: Document 12/05/17 10:07 AB (Rec: 12/05/17 12:34 AB [id number]) Orientation Orientation/Cognition Level of Alertness Alert Orientation Name Age Place Situation Safety Awareness Decreased Safety Awareness Memory Description Short Term Impaired M6 PT-IP Treatment Start: 12/03/17 17:12 Freq: NEEDED Status: Active Protocol: Document 12/05/17 16:38 AB (Rec: 12/05/17 17:17 AB [id number]) Physical Therapy Treatment Education Education Provided Precautions Safety M7 PT-IP Assessment and Plan Start: 12/03/17 17:12 Freq: NEEDED Status: Active Protocol: Document 12/05/17 16:38 AB (Rec: 12/05/17 17:17 AB [id number]) PT Summary Assessment and Plan Potential Rehabilitation Potential Good Summary Impairments Pain ROM Strength Balance Cognition Bed Mobility Transfers Gait Activity Tolerance Progress Towards Goals Slow Progress due to Pain Assessment Summary pt progressing slowly but continues to require 1 person assist with mobility and has decrease activity tolerance. pt will require SNF rehab to improve strength and independence. pt is not safe to go home due to level of assistance needed and safety. Goals Bed Mobility Goal Standby Assistance Transfer Goal Standby Assistance Front Wheeled Walker Four Wheeled Walker Gait Goal Standby Assistance Front Wheel Walker Four Wheel Walker Gait Distance 100 Other Goals up/down 3 steps with 1 rail SBA Days to Meet Goals 3 Frequency of Treatment Frequency Of Treatment Twice a Day Treatment Plan Physical Therapy Treatment Plan Bed Mobility Training Transfer Training Gait Training Therapeutic Exercise Balance Retraining Post Op Education Discharge Planning Hot or Cold Pack Neuromuscular Re-ed Coordination Retraining Manual Therapy Recommendations To Nursing Amount of Assist Needed 1 Person Assist Discharge Recommendations PT Discharge Recommendations SNF Rehab
[2017-12-05] MEDS: hydrOXYzine pamoate 25 MG CAPSULE PO (21:46)
[2017-12-06] VITALS (7 sets, daily range): BP systolic 131–187; BP diastolic 66–75; PULSE 56–70; RESP 16–18; TEMP 35.8–37.2; O2SAT 94–99
[2017-12-06] MEDS: BISACODYL 5 MG TABLET PO (00:03)
--- NOTE | 2017-12-06 03:27 | PC.NURSE ---
Pt is AxOx3, complaining of 3/10 pain which is relieved with the dexamethasone and tylenol. Ambulates to bathroom with walker and standby assist. Blood pressure elevated after going to bathroom. Scant shadow drainage noted to dressing on back. B/L foot SCD applied. call hartman in reach
[2017-12-06] MEDS: DEXAMETHASONE 4 MG TABLET PO (06:06)
[2017-12-06] MEDS: ACETAMINOPHEN 325 MG TABLET 650 MG PO ×2 (06:06→17:25)
--- NOTE | 2017-12-06 07:45 | CM.DPC ---
Clinicals, PT, OT faxed to [facility] for SNF auth per Herminia
--- NOTE | 2017-12-06 09:00 | PT.IPTN ---
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) Other spondylosis with radiculopathy, lumbar region (12/03/17) Spinal stenosis, lumbar region without neurogenic claudication (12/03/17) Arthrodesis status (12/03/17) Surgery Performed Operation Date: 12/03/17 07:45 Actual Procedures p L3-4,L5-S1 TLIF; L4-5 Lumbar HWR, Explor Fusion; Repeat Laminectomy, L3-4, L4-5,L5-S1 PSF w/Instru - Bonita Sy MD Physical Therapy Treatment Note M2 PT-IP Current Condition Start: 12/03/17 17:12 Freq: NEEDED Status: Active Protocol: Document 12/03/17 16:30 AB (Rec: 12/03/17 17:23 AB [id number]) Physical Therapy Current Condition Current Condition Evaluation Date 12/03/17 Treatment Diagnosis s/p L3-4, L5S1 TLIF; L4-5 revision laminectomy; difficuties in walking Onset Date 12/03/17 Precautions Lumbar Precautions Log Roll No Twisting Limit Bending Lifting Restriction of 10 lbs Gait Belt above Incisional Area M3 PT-IP Subjective Start: 12/03/17 17:12 Freq: NEEDED Status: Active Protocol: Document 12/06/17 09:00 AB (Rec: 12/06/17 10:58 AB [id number]) Subjective Physical Therapy Visit Type Type Treatment Note Visit Start Time 09:00 Visit Stop Time 09:09 Total Visit Minutes 9 Number of STOCKING [employer]OX [employer] SUPERVISOR Visits 0 Physical Therapy Visit Comments Patient Comments checked on pt 3x to do more therapy but refused. Therapy Pain Assessment Pain When Pain Assessed At Rest Pain Present Pain Present Pain Reported Location Lower Back Intensity 5 Scale Used Numeric (1 - 10) M4 PT-IP Mobility and Gait Start: 12/03/17 17:12 Freq: NEEDED Status: Active Protocol: Document 12/06/17 09:00 AB (Rec: 12/06/17 10:58 AB [id number]) PT-Transfer Assessment Sit to and From Stand Sit to and from Stand Minimal Assistance Gait Assessment Gait Gait Assistance Required: Minimum Assistance Distance (Feet) (feet) 10 Able to Maintain Weight Bearing Status Yes During Gait Assistive Devices Assistive Device Gait Belt Front Wheeled Walker Orthotic/Prosthetic Devices or Brace: No Gait Deviations General Gait Pattern Decreased Stride Length Decreased Feet Clearance Factors Limiting Gait Function Factors Limiting Gait Function Decreased Activity Tolerance Decreased Strength Pain Poor Balance Poor Safety Awareness M5 PT-IP Objective Assessments Start: 12/03/17 17:12 Freq: NEEDED Status: Active Protocol: Document 12/05/17 10:07 AB (Rec: 12/05/17 12:34 AB [id number]) Orientation Orientation/Cognition Level of Alertness Alert Orientation Name Age Place Situation Safety Awareness Decreased Safety Awareness Memory Description Short Term Impaired M6 PT-IP Treatment Start: 12/03/17 17:12 Freq: NEEDED Status: Active Protocol: Document 12/06/17 09:00 AB (Rec: 12/06/17 10:58 AB [id number]) Physical Therapy Treatment Education Education Provided Precautions Safety M7 PT-IP Assessment and Plan Start: 12/03/17 17:12 Freq: NEEDED Status: Active Protocol: Document 12/06/17 09:00 AB (Rec: 12/06/17 10:58 AB [id number]) PT Summary Assessment and Plan Potential Rehabilitation Potential Fair Summary Impairments Pain ROM Strength Cognition Bed Mobility Transfers Gait Activity Tolerance Progress Towards Goals Slow Progress due to Activity Tolerance Assessment Summary pt ambulated towards the toilet using FWW min A for a shower with OT. pt continues to require assistance and has decrease activity tolerance. pt will require SNF rehab. Goals Bed Mobility Goal Standby Assistance Transfer Goal Standby Assistance Front Wheeled Walker Four Wheeled Walker Gait Goal Standby Assistance Front Wheel Walker Four Wheel Walker Gait Distance 100 Other Goals up/down 3 steps with 1 rail SBA Days to Meet Goals 3 Frequency of Treatment Frequency Of Treatment Twice a Day Treatment Plan Physical Therapy Treatment Plan Bed Mobility Training Transfer Training Gait Training Therapeutic Exercise Balance Retraining Post Op Education Discharge Planning Hot or Cold Pack Neuromuscular Re-ed Coordination Retraining Manual Therapy Recommendations To Nursing Amount of Assist Needed 1 Person Assist Discharge Recommendations PT Discharge Recommendations SNF Rehab
[2017-12-06] MEDS: DOCUSATE 100 MG CAPSULE PO ×2 (09:28→20:28)
[2017-12-06] MEDS: OXYCODONE IR 5 MG TABLET PO ×2 (09:31→20:28)
--- NOTE | 2017-12-06 09:53 | PC.NURSE ---
Pt up to shower with O.T. and is now sitting up in chair. Dsg to back changed due to shadow drainage present on prior dressing. Pt intially stated she had minimal pain and declined pain meds, however after sitting down in the chair she felt that she ought to have a pain pill and requested Oxycodone for 09/02 pain to her back. Pt now resting in the chair and states she needs nothing at this time. Discussed bowel movement with Pt (last bm was on 12/02) and Pt declined MOM but agreed to a stool softener and later on today is agreeable to trying a suppository.
--- NOTE | 2017-12-06 09:58 | OT.IP.TRT ---
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) Other spondylosis with radiculopathy, lumbar region (12/03/17) Spinal stenosis, lumbar region without neurogenic claudication (12/03/17) Arthrodesis status (12/03/17) Surgery Performed Operation Date: 12/03/17 07:45 Actual Procedures p L3-4,L5-S1 TLIF; L4-5 Lumbar HWR, Explor Fusion; Repeat Laminectomy, L3-4, L4-5,L5-S1 PSF w/Instru - Bonita Sy MD Occupational Therapy Treatment Note M2 OT-IP Current Condition Start: 12/04/17 09:56 Freq: Status: Active Protocol: Document 12/06/17 09:29 ADH (Rec: 12/06/17 09:58 ADH [id number]) Occupational Therapy Current Condition Current Condition Evaluation Date 12/04/17 Treatment Diagnosis L3-L5 lami Diagnosis Onset Date 12/03/17 Post Operative Precautions Lumbar Precautions Log Roll No Twisting Limit Bending Lifting Restriction of 10 lbs Gait Belt above Incisional Area M3 OT- IP Subjective and Pain Start: 12/04/17 09:56 Freq: Status: Active Protocol: Document 12/06/17 09:29 ADH (Rec: 12/06/17 09:58 ADH [id number]) OT- Subjective Occupational Therapy Visit Type Type Treatment Note Visit Start Time 08:59 Visit Stop Time 09:29 Total Visit Minutes 30 Notes Pt agreeable to OT services, requesting shower OT Pain Assessment Pain When Pain Assessed At Rest Pain Present Pain Present Pain Reported Location Lower Back Intensity 4 Scale Used Numeric (1 - 10) M4 OT- IP ADL's Start: 12/04/17 09:56 Freq: Status: Active Protocol: Document 12/06/17 09:29 ADH (Rec: 12/06/17 09:58 ADH [id number]) OT LGO-Uyzd-Aptyvro General Evaluation Self-Feeding Ability Independent OT ADL-Grooming General Evaluation Grooming Ability Independent Areas Needing Assistance Retrieving/Set-up of Grooming Items OT ADL-Oral Care General Eval Oral Care Ability Independent Areas of Assistance Retrieving/Set-Up of Items OT ADL-Dressing General Eval Upper Body Dressing Ability Independent Lower Body Dressing Ability Maximum Assistance Total Assistance Areas Needing Assistance Underpants/Brief Socks Comments OT Dressing Comments Pt requiring total A for LB dressing 2' surgical precautions. Pt with difficulty maintaining precautions without SBA, frequently attempting to bend to feet. Educated pt about long handled equipment to increase independence. OT ADL-Toileting General Evaluation Toileting Ability Minimal Assistance Areas Needing Assistance Perform Perineal Hygiene Comments OT Toileting Comments Pt able to transfer to/from toilet with min A, min A for brief and hygiene. OT ADL-Bathing Bathing Type Bathing Type Shower General Evaluation Bathing Ability Moderate Assistance Areas Needing Assistance Wash/Dry Back Wash/Dry Lower Extremities Devices Bathing Equipment Hand Held Shower Sprayer Shower Chair with Arms Grab Bars Comments OT Bathing Comments Pt able to complete seated UB bathing with SBA, A for retrieving dropped items only. Pt needing SBA to guard balance in standing. Pt needing A to wash/dry back, lower legs 2' spinal precautions. Pt fatigued with activity and needed rest breaks. M6 OT- IP Functional Cognition Start: 12/04/17 09:56 Freq: Status: Active Protocol: Document 12/06/17 09:29 ADH (Rec: 12/06/17 09:58 ADH [id number]) Cognitive Factors Limiting Selfcare Function Cognitive Ability Safety Awareness Decreased Recall of Precautions Decreased Ability to Apply Precautions M7 OT- IP Mobility and Balance Start: 12/04/17 09:56 Freq: Status: Active Protocol: Document 12/06/17 09:29 ADH (Rec: 12/06/17 09:58 ADH [id number]) OT-Transfer Assessment Sit to and From Stand Sit to and from Stand Contact Guard Assistance Transfers Transfer Ability Minimal Assistance Technique Transfer Destination Chair Shower Stall Transfer Technique Stand Step Pivot Devices Transfer Assistive Devices Gait Belt Front Wheeled Walker M8 OT- IP Objective Assessments Start: 12/04/17 09:56 Freq: Status: Active Protocol: Document 12/04/17 09:29 ADH (Rec: 12/04/17 10:14 ADH [id number]) OT Gross Range of Motion Upper Extremity Range of Motion Assessment Within Functional Limits OT Strength Upper Extremity Strength Assessment Within Functional Limits OT- Coordination Assessment Upper Extremity Finger Tapping Test Within Functional Limits M9 OT- IP Assessment and Plan Start: 12/04/17 09:56 Freq: Status: Active Protocol: Document 12/06/17 09:29 ADH (Rec: 12/06/17 09:58 ADH [id number]) OT Summary Assessment and Plan Potential Rehabilitation Potential Excellent Analytic Complexity at Evaluation Low Summary OT Impairments Pain Range of Motion Progress Towards Goals Progressing Toward Goals Assessment Summary Pt with improved self-care and functional mobility this session, continues to need increased time and effort for all tasks 2' fatigue and low activity tolerance and pain. Pt needing A for all LB bADLs and functional mobility this time. Even with adaptive equipment, pt is not independent at this time. Pt not safe to d/c home d/t lack of support at home and pt's continued impairments. Recc SNF. Treatment Plan OT Treatment Plan ADL Training Functional Mobility Discharge Recommendations OT Discharge Recommendations SNF Rehab
--- NOTE | 2017-12-06 10:19 | PM.DS.1 ---
History of Present Illness Date Patient Seen: 12/06/17 Time Patient Seen: 10:20 Chief complaint: [id number] Narrative: Patient is a 77 year old female with a history of intractable back pain. She failed treatment with multiple ESIs for her back pain. The pain was limiting her activities of daily living and she elected to proceed with surgical treatment by Dr. Sy at [facility]. Discharge Providers Date of admission: 12/03/17 06:37 Primary care physician: Felipe Bradley DO Consults: 12/03/17 13:54 Consult to Occupational Therapy Evaluate & Treat Comment: Physician Instructions: Evaluate and treat Consult to Physical Therapy Evaluate & Treat Comment: Physician Instructions: Evaluate and Treat 12/04/17 07:41 Consult to Discharge Planning Routine Comment: Discharge provider: Marilia Roy PA-C Summary Discharge Diagnosis: 1. 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 L3-4, L5-S1 spinal stenosis 3. L3-4, L5-S1 spondylosis with radiculopathy 4. Lumbar scoliosis 5.Post op anemia Hospital Course: Patient was admitted and taken the operating room where she had a L3-4, L5-S1 TLIF, L4-5 lumbar HWR, exploration of fusion, repeat laminectomy, and L3-S1 PSF by Dr. Sy. She recovered well and was transferred to the floor for further care. Postop day was 1 into patient was having a lot of pain and had not mobilize with physical therapy. Postop day 2 she was given a dose of steroids which relieved her pain and radiculopathy. PD 3, she was able to ambulate with PT in the room and to the restroom. The patient still needed help with getting in and out of bed and had not walked in the hallway yet. She lives alone and does not have help at home. She was medically stable to be discharged to a SNF, [facility] for further rehab and therapy pending insurance approval. Status at Discharge Cognitive/behavioral status at discharge: Alert orient x3 Functional status at discharge: uses cane/walker Overall status at discharge: patient is not back to baseline Time Spent with Patient Less than 30 minutes Exam Vital Signs (past 8 hours): - 12/06/17 02:45 12/06/17 04:13 12/06/17 07:50 Temperature 96.5 F L Respiratory Rate 18 Blood Pressure 178/71 H 176/73 H 185/75 H Pulse Oximetry 94 Oxygen Delivery Method Room Air Oxygen Flow Rate 0 Narrative Exam Narrative: Patient up with a walker in the restroom. Still needs assistance with getting in and out of bed. Back dressing few spots of blood. Full sensations in both legs and bilateral calf soft and nontender. Five 5/5 BLE strength. Patient alert orient x3. Objective Labs Result Diagrams: 12/04/17 05:53 Discharge Plan Discharge Plan Patient Disposition: SNF Transfer to: [facility] Transportation: Facility vehicle I certify the postop hospital nursing home care is medically necessary on a continuing basis for any conditions for which he/ she received care during this hospitalization.: Yes The receiving facility has agreed to accept transfer and provide medical treatment.: Yes Discharge Med Rec/Prescriptions Prescriptions: New oxycodone 5 mg Tablet 10 mg PO Q4H PRN (Reason: Pain, Severe (7-10)) Qty: 60 RF: 0 hydroxyzine pamoate 25 mg Capsule 25 mg PO Q4HR PRN (Reason: Nausea And Vomiting) Qty: 60 RF: 0 acetaminophen 325 mg Tablet 650 mg PO Q6HR Qty: 0 RF: 0 ascorbic acid (vitamin C) [Vitamin C] 500 mg Tablet 500 mg PO DAILY Qty: 0 RF: 0 ferrous sulfate 325 mg (65 mg iron) Tablet 325 mg PO DAILY Qty: 0 RF: 0 Continue aspirin 81 mg Tablet,Delayed Release (Dr/Ec) 81 mg PO DAILY RF: 0 Follow up/Referrals: Bonita Sy MD [Physician] - (Follow-up at scheduled time on 12/17/2017 at [facility]. Contact office with any issues or concerns.) Discharge Health Status Brief summary of current health status: Pt surgery L3-4, L5-S1 TLIF, L4-5 lumbar HWR, exploration of fusion, repeat laminectomy, and L3-S1 PSF. Multidrug resistant organism: No MDRO MDRO Verified by culture: No Precautions: [place] Provider Discharge Instructions Diet: Diet as Tolerated Liquid consistency: Normal/Thin Food texture: Regular Activity: Ambulate with assistance of wheeled walker/cane. No bending lifting or twisting. Cold/Heat Therapy: Apply ice as needed for swelling and pain. Wound Care Report to your healthcare provider any signs of infection, such as:: chills, fever, increased pain and unusual drainage Dressing: Keep dressing clean dry and intact. May shower. Special Rehabilitation Services Reason for rehabilitation: Post-operative therapy Rehab type: Physical therapy and Occupational therapy Restrictions to mobility: No bending lifting or twisting. Visit Report/Discharge Packet Instructions: DI for Transforaminal Lumbar Interbody Fusion Discharge Data Primary Care Provider: Felipe Bradley Attending Provider: Bonita Sy Admit Date/Time: 12/03/17 06:37 Quality VTE Deep Vein Thrombosis/Pulmonary Embolism Present on Admission: No
--- NOTE | 2017-12-06 10:29 | P.DS_ITS ---
History of Present Illness Date Patient Seen: 12/06/17 Time Patient Seen: 10:20 Chief complaint: [id number] Narrative: Patient is a 77 year old female with a history of intractable back pain. She failed treatment with multiple ESIs for her back pain. The pain was limiting her activities of daily living and she elected to proceed with surgical treatment by Dr. Sy at [facility]. Discharge Providers Date of admission: 12/03/17 06:37 Primary care physician: Felipe Bradley DO Consults: 12/03/17 13:54 Consult to Occupational Therapy Evaluate & Treat Comment: Physician Instructions: Evaluate and treat Consult to Physical Therapy Evaluate & Treat Comment: Physician Instructions: Evaluate and Treat 12/04/17 07:41 Consult to Discharge Planning Routine Comment: Discharge provider: Marilia Roy PA-C Summary Discharge Diagnosis: 1. 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 L3-4, L5-S1 spinal stenosis 3. L3-4, L5-S1 spondylosis with radiculopathy 4. Lumbar scoliosis 5.Post op anemia Hospital Course: Patient was admitted and taken the operating room where she had a L3-4, L5-S1 TLIF, L4-5 lumbar HWR, exploration of fusion, repeat laminectomy, and L3-S1 PSF by Dr. Sy. She recovered well and was transferred to the floor for further care. Postop day was 1 into patient was having a lot of pain and had not mobilize with physical therapy. Postop day 2 she was given a dose of steroids which relieved her pain and radiculopathy. PD 3, she was able to ambulate with PT in the room and to the restroom. The patient still needed help with getting in and out of bed and had not walked in the hallway yet. She lives alone and does not have help at home. She was medically stable to be discharged to a SNF, [facility] for further rehab and therapy pending insurance approval. Status at Discharge Cognitive/behavioral status at discharge: Alert orient x3 Functional status at discharge: uses cane/walker Overall status at discharge: patient is not back to baseline Time Spent with Patient Less than 30 minutes Exam Vital Signs (past 8 hours): - 12/06/17 02:45 12/06/17 04:13 12/06/17 07:50 Temperature 96.5 F L Respiratory Rate 18 Blood Pressure 178/71 H 176/73 H 185/75 H Pulse Oximetry 94 Oxygen Delivery Method Room Air Oxygen Flow Rate 0 Narrative Exam Narrative: Patient up with a walker in the restroom. Still needs assistance with getting in and out of bed. Back dressing few spots of blood. Full sensations in both legs and bilateral calf soft and nontender. Five 5/5 BLE strength. Patient alert orient x3. Objective Labs Result Diagrams: 12/04/17 05:53 Discharge Plan Discharge Plan Patient Disposition: SNF Transfer to: [facility] Transportation: Facility vehicle I certify the postop hospital senior living care is medically necessary on a continuing basis for any conditions for which he/ she received care during this hospitalization.: Yes The receiving facility has agreed to accept transfer and provide medical treatment.: Yes Discharge Med Rec/Prescriptions Prescriptions: New oxycodone 5 mg Tablet 10 mg PO Q4H PRN (Reason: Pain, Severe (7-10)) Qty: 60 RF: 0 hydroxyzine pamoate 25 mg Capsule 25 mg PO Q4HR PRN (Reason: Nausea And Vomiting) Qty: 60 RF: 0 acetaminophen 325 mg Tablet 650 mg PO Q6HR Qty: 0 RF: 0 ascorbic acid (vitamin C) [Vitamin C] 500 mg Tablet 500 mg PO DAILY Qty: 0 RF: 0 ferrous sulfate 325 mg (65 mg iron) Tablet 325 mg PO DAILY Qty: 0 RF: 0 Continue aspirin 81 mg Tablet,Delayed Release (Dr/Ec) 81 mg PO DAILY RF: 0 Follow up/Referrals: Bonita Sy MD [Physician] - (Follow-up at scheduled time on 12/17/2017 at [facility]. Contact office with any issues or concerns.) Discharge Health Status Brief summary of current health status: Pt surgery L3-4, L5-S1 TLIF, L4-5 lumbar HWR, exploration of fusion, repeat laminectomy, and L3-S1 PSF. Multidrug resistant organism: No MDRO MDRO Verified by culture: No Precautions: [place] Provider Discharge Instructions Diet: Diet as Tolerated Liquid consistency: Normal/Thin Food texture: Regular Activity: Ambulate with assistance of wheeled walker/cane. No bending lifting or twisting. Cold/Heat Therapy: Apply ice as needed for swelling and pain. Wound Care Report to your healthcare provider any signs of infection, such as:: chills, fever, increased pain and unusual drainage Dressing: Keep dressing clean dry and intact. May shower. Special Rehabilitation Services Reason for rehabilitation: Post-operative therapy Rehab type: Physical therapy and Occupational therapy Restrictions to mobility: No bending lifting or twisting. Visit Report/Discharge Packet Instructions: DI for Transforaminal Lumbar Interbody Fusion Discharge Data Primary Care Provider: Felipe Bradley Attending Provider: Bonita Sy Admit Date/Time: 12/03/17 06:37 Quality VTE Deep Vein Thrombosis/Pulmonary Embolism Present on Admission: No
[2017-12-06] MEDS: ASCORBIC ACID 500 MG TABLET PO (11:00)
--- NOTE | 2017-12-06 12:45 | CM.DPC ---
DCP/continued: Reviewed chart. Received verbal referral from Ortho/KIRTI Capellan that patient is medically stable to transfer to SNF. Current recommendation from therapy is SNF for rehab. Per notes, first SNF choice is [facility]. Notes indicate patient accepted pending [facility] authorization. Placed call to Leann BAZZI at [facility]# [phone] re: authorization. She is requesting all therapy notes from today's sessions need to be faxed to [facility] for Medical MD review. EM obtained therapy notes from [facility] 12-06 and faxed to [phone]. Leann reports that [facility] will review and decide whether or not patient will be authorized. Awaiting call back from [facility] re: [facility] authorization. Orders obtained for patient to d/c to SNF today. If patient is denied most likely will need to d/c home with . P: Pending. EM Sifuentes
--- NOTE | 2017-12-06 13:10 | PC.NURSE ---
Pt declined suppository at this time. States she is waiting to see if she will be discharged to SNF or stay another night. Pt states she will consider a suppository this evening.
--- NOTE | 2017-12-06 15:55 | PT.IPTN ---
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) Other spondylosis with radiculopathy, lumbar region (12/03/17) Spinal stenosis, lumbar region without neurogenic claudication (12/03/17) Arthrodesis status (12/03/17) Surgery Performed Operation Date: 12/03/17 07:45 Actual Procedures p L3-4,L5-S1 TLIF; L4-5 Lumbar HWR, Explor Fusion; Repeat Laminectomy, L3-4, L4-5,L5-S1 PSF w/Instryessica - Bonita Sy MD Physical Therapy Treatment Note M2 PT-IP Current Condition Start: 12/03/17 17:12 Freq: NEEDED Status: Active Protocol: Document 12/03/17 16:30 AB (Rec: 12/03/17 17:23 AB [id number]) Physical Therapy Current Condition Current Condition Evaluation Date 12/03/17 Treatment Diagnosis s/p L3-4, L5S1 TLIF; L4-5 revision laminectomy; difficuties in walking Onset Date 12/03/17 Precautions Lumbar Precautions Log Roll No Twisting Limit Bending Lifting Restriction of 10 lbs Gait Belt above Incisional Area M3 PT-IP Subjective Start: 12/03/17 17:12 Freq: NEEDED Status: Active Protocol: Document 12/06/17 15:55 AB (Rec: 12/06/17 16:37 AB [id number]) Subjective Physical Therapy Visit Type Type Treatment Note Visit Start Time 15:55 Visit Stop Time 16:14 Total Visit Minutes 19 Number of TEAR DOWN MAN Visits 0 Physical Therapy Visit Comments Patient Comments pt agreeable to ambulate Therapy Pain Assessment Pain When Pain Assessed At Rest Pain Present Pain Present Pain Reported Location Lower Back Intensity 6 Scale Used Numeric (1 - 10) Pain Management Techniques Re-positioning M4 PT-IP Mobility and Gait Start: 12/03/17 17:12 Freq: NEEDED Status: Active Protocol: Document 12/06/17 15:55 AB (Rec: 12/06/17 16:37 AB [id number]) PT-Transfer Assessment Sit to and From Stand Sit to and from Stand Contact Guard Assistance Minimal Assistance 1 Person Assistance Use of Upper Extremities Gait Assessment Gait Gait Assistance Required: Contact Guard Assist Minimum Assistance Distance (Feet) (feet) 100 Able to Maintain Weight Bearing Status Yes During Gait Assistive Devices Assistive Device Gait Belt Front Wheeled Walker Orthotic/Prosthetic Devices or Brace: No Factors Limiting Gait Function Factors Limiting Gait Function Decreased Activity Tolerance Decreased Strength Pain Poor Balance Poor Safety Awareness Stair Climbing Assessment Evaluation Level of Assist On Stairs Contact Guard Assistance Minimal Assistance Devices Stair Climbing Assistive Devices Left Railing Right Railing Technique/Endurance Stair Climbing Direction Ascend and Descend Stair Climbing Technique Step to Step Number of Steps Climbed 3 Query Text: Stair Climbing Set # Repetitions (reps) 1 M5 PT-IP Objective Assessments Start: 12/03/17 17:12 Freq: NEEDED Status: Active Protocol: Document 12/05/17 10:07 AB (Rec: 12/05/17 12:34 AB [id number]) Orientation Orientation/Cognition Level of Alertness Alert Orientation Name Age Place Situation Safety Awareness Decreased Safety Awareness Memory Description Short Term Impaired M6 PT-IP Treatment Start: 12/03/17 17:12 Freq: NEEDED Status: Active Protocol: Document 12/06/17 09:00 AB (Rec: 12/06/17 10:58 AB [id number]) Physical Therapy Treatment Education Education Provided Precautions Safety M7 PT-IP Assessment and Plan Start: 12/03/17 17:12 Freq: NEEDED Status: Active Protocol: Document 12/06/17 15:55 AB (Rec: 12/06/17 16:37 AB [id number]) PT Summary Assessment and Plan Potential Rehabilitation Potential Good Summary Impairments Pain ROM Strength Balance Bed Mobility Transfers Gait Activity Tolerance Progress Towards Goals Progressing Toward Goals Assessment Summary pt progressing with mobility but continues to require one person assist and cues for safety. pt will benefit from SNF rehab to improve strength and independence. Goals Bed Mobility Goal Standby Assistance Transfer Goal Standby Assistance Front Wheeled Walker Four Wheeled Walker Gait Goal Standby Assistance Front Wheel Walker Four Wheel Walker Gait Distance 100 Other Goals up/down 3 steps with 1 rail SBA Days to Meet Goals 3 Treatment Plan Other Recommendations and Next Treatment ambulation using 4WW Focus Recommendations To Nursing Amount of Assist Needed 1 Person Assist Discharge Recommendations PT Discharge Recommendations SNF Rehab
[2017-12-06] MEDS: BISACODYL 10 MG SUPP PR (17:27)
[2017-12-06] MEDS: MAG HYDROX/ALUM/SIMETH 30 ML UDC PO (20:29)
--- NOTE | 2017-12-06 22:40 | PC.NURSE ---
At 2030 patient states she feels like something is not right, when asked to go into detail and this RN asked more questions patient states she feels like it may be gas pain in her abd. This RN gave patient maalox to ease her stomach, when reassessed later patient states it was effective. dressing is c/d/i. now sleeping in bed with call light in reach.
[2017-12-07] MEDS: OXYCODONE IR 5 MG TABLET PO ×3 (04:15→21:33)
[2017-12-07 05:30] VITALS: BP 162/65; PULSE 55; RESP 16; TEMP 36.7; O2SAT 96
[2017-12-07 07:15] VITALS: BP 142/64; PULSE 61; RESP 16; TEMP 36.3; O2SAT 99
[2017-12-07] MEDS: ASCORBIC ACID 500 MG TABLET PO (08:01)
[2017-12-07] MEDS: DOCUSATE 100 MG CAPSULE PO ×2 (08:01→20:32)
--- NOTE | 2017-12-07 08:33 | CM.DPNOTE ---
Addendum entered by EM Qureshi 12/07/17 15:21: ADD: IRAIS also called Birdie at [facility] and updated on denial and appeal process and likely pt [facility] home when [facility] if [facility] will [facility]/c home or not. BF Original Note: Addendum entered by EM Qureshi 12/07/17 15:12: ADD: Jayy Noriega CM, called and stated that physician review determined that pt needs more halfway care and denied SNF auth. Leann called pt's room and informed her of the decision and pt chose not to write down the appeal phone number. SW met bedside with pt and further discussed discharge options and reiterated the importance of reaching out to her family and friends for support at home. Pt states she thinks she may appeal the [facility] denial. Pt is agreeable with SW setting up HH in the mean time. Pt attempted to call her son but states he was not available. IRAIS made new referral to [facility] and faxed clinicals for review along with the F2F and MD orders. IRAIS provided pt with the [facility] brochure and the Senior Resource Guidebook with Private Pay CG info although pt seems quite hesitant about setting up people to help. IRAIS again encouraged pt to reach out to either friends/family or caregivers for a few days support in case the appeal is not overturned. IRAIS provided pt with the Appeal phone Line number [phone] to begin the process. IRAIS updated title examiner and RN and PT. Plan: IRAIS to follow closely for pt appeal of [facility] denial towards likely d/c home with [facility] and already faxed F2F and orders to [facility] . EM Qureshi Original Note: Addendum entered by EM Qureshi 12/07/17 09:46: ADD: IRAIS met bedside with pt and explained role and provided pt's Medicare Rights and pt acknowledged understanding and signed her Medicare Message at 0930. IRAIS updated pt on still waiting for [facility] determination and began discussing back up plan with pt and she is agreeable to home with HH and neighbor friends to check in on her during the day but also worried about night time. SW inquired if her son could stay the night for a couple days for additional support and pt states SW should probably ask her son ourselves. SW also discussed possible private pay caregivers and pt states she would be willing to consider this option as well. SW briefly discussed HH services and frequency and pt agreeable. Pt preference is [facility] and SW to follow closely for [facility] determination. EM Qureshi Original Note: DCP Cont: SW left msg for Jayy Noriega CM, first thing this morning to follow up on the Physician Review to determine if pt meets criteria for SNF auth. Received call back from Leann stating that the weekend review takes longer but that she expedited the referral knowing the pt is ready for discharge and Leann also called to alert them to this information and will call SW back as soon as she hears an answer. IRAIS called Patti to update on pt status and hopeful answer from [facility] today if pt is auth'd for SNF. Per RN, pt SNF denied, pt likely would be safe for d/c home with friend/neighbor support during the day if she had her son or someone to stay with her at night for a few days. Plan: SW to follow closely for final determination from [facility] if pt is auth'd for SNF at [facility]. Otherwise plan for home with HH and family/friend support would need to be set up. EM Qureshi
--- NOTE | 2017-12-07 10:15 | PT.IPTN ---
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) Other spondylosis with radiculopathy, lumbar region (12/03/17) Spinal stenosis, lumbar region without neurogenic claudication (12/03/17) Arthrodesis status (12/03/17) Surgery Performed Operation Date: 12/03/17 07:45 Actual Procedures p L3-4,L5-S1 TLIF; L4-5 Lumbar HWR, Explor Fusion; Repeat Laminectomy, L3-4, L4-5,L5-S1 PSF w/Instryessica - Bonita Sy MD Physical Therapy Treatment Note M2 PT-IP Current Condition Start: 12/03/17 17:12 Freq: NEEDED Status: Active Protocol: Document 12/03/17 16:30 AB (Rec: 12/03/17 17:23 AB [id number]) Physical Therapy Current Condition Current Condition Evaluation Date 12/03/17 Treatment Diagnosis s/p L3-4, L5S1 TLIF; L4-5 revision laminectomy; difficuties in walking Onset Date 12/03/17 Precautions Lumbar Precautions Log Roll No Twisting Limit Bending Lifting Restriction of 10 lbs Gait Belt above Incisional Area M3 PT-IP Subjective Start: 12/03/17 17:12 Freq: NEEDED Status: Active Protocol: Document 12/07/17 09:30 CLB (Rec: 12/07/17 10:15 CLB [id number]) Subjective Physical Therapy Visit Type Type Treatment Note Visit Start Time 09:30 Visit Stop Time 09:45 Total Visit Minutes 15 Number of STEEL RULE DIE MAKER APPRENTICE Visits 1 Physical Therapy Visit Comments Patient Comments pt agreeable to ambulate Therapy Pain Assessment Pain Present Pain Present Denied Pain M4 PT-IP Mobility and Gait Start: 12/03/17 17:12 Freq: NEEDED Status: Active Protocol: Document 12/07/17 09:30 CLB (Rec: 12/07/17 10:15 CLB [id number]) PT-Bed Mobility Assessment Rolling Type of Rolling Log Rolling Level of Assist Standby Assistance Supine to Sit Supine to Sit Standby Assistance Sit to Supine Sit to Supine Minimal Assistance Scooting Scooting to Edge of Bed Standby Assistance Scooting Up and Down in Bed Standby Assistance PT-Transfer Assessment Sit to and From Stand Sit to and from Stand Contact Guard Assistance 1 Person Assistance Equipment Transfer Assistive Device 4 Wheeled Walker Transfers Transfer Destination Bed Transfer Technique after ambulation Transfer Ability Level of Assist Contact Guard Assistance Comments Mobility Comments Pt CGA/SBA for all mobility. Gait Assessment Gait Gait Assistance Required: Contact Guard Assist Distance (Feet) (feet) 150 Able to Maintain Weight Bearing Status Yes During Gait Assistive Devices Assistive Device Gait Belt 4 Wheeled Walker Orthotic/Prosthetic Devices or Brace: No Gait Deviations General Gait Pattern Decreased Stride Length Flexed Trunk Factors Limiting Gait Function Factors Limiting Gait Function Decreased Activity Tolerance Decreased Strength Pain Poor Balance Poor Safety Awareness Comments Gait Comments Pt able to ambulate CGA with 4WW ~150ft. Stair Climbing Assessment Evaluation Level of Assist On Stairs Contact Guard Assistance Devices Stair Climbing Assistive Devices Left Railing Right Railing Technique/Endurance Stair Climbing Direction Ascend and Descend Stair Climbing Technique Step to Step Number of Steps Climbed 3 Query Text: Stair Climbing Set # Repetitions (reps) 2 Comments Stair Climbing Comments Pt able to perform stairs safely and stated she had no increase in pain. M5 PT-IP Objective Assessments Start: 12/03/17 17:12 Freq: NEEDED Status: Active Protocol: Document 12/05/17 10:07 AB (Rec: 12/05/17 12:34 AB [id number]) Orientation Orientation/Cognition Level of Alertness Alert Orientation Name Age Place Situation Safety Awareness Decreased Safety Awareness Memory Description Short Term Impaired M6 PT-IP Treatment Start: 12/03/17 17:12 Freq: NEEDED Status: Active Protocol: Document 12/06/17 09:00 AB (Rec: 12/06/17 10:58 AB [id number]) Physical Therapy Treatment Education Education Provided Precautions Safety M7 PT-IP Assessment and Plan Start: 12/03/17 17:12 Freq: NEEDED Status: Active Protocol: Document 12/07/17 09:30 CLB (Rec: 12/07/17 10:15 CLB [id number]) PT Summary Assessment and Plan Potential Rehabilitation Potential Good Summary Impairments Pain ROM Strength Balance Bed Mobility Transfers Gait Activity Tolerance Progress Towards Goals Progressing Toward Goals Assessment Summary Pt progressing with mobility needing assist with LE getting into bed. Pt able to ambulate CGA with 4WW that she brought from home. Pt would benefit from SNF rehab due to pt needing assist with gait, mobility and stairs and is unsafe to be alone and would need assist. Pt has no one to assist her. Goals Bed Mobility Goal Standby Assistance Transfer Goal Standby Assistance Front Wheeled Walker Four Wheeled Walker Gait Goal Standby Assistance Front Wheel Walker Four Wheel Walker Gait Distance 100 Other Goals up/down 3 steps with 1 rail SBA Days to Meet Goals 3 Frequency of Treatment Frequency Of Treatment Twice a Day Treatment Plan Physical Therapy Treatment Plan Bed Mobility Training Transfer Training Gait Training Therapeutic Exercise Balance Retraining Post Op Education Discharge Planning Hot or Cold Pack Neuromuscular Re-ed Coordination Retraining Manual Therapy Recommendations To Nursing Amount of Assist Needed 1 Person Assist Discharge Recommendations PT Discharge Recommendations SNF Rehab
--- NOTE | 2017-12-07 11:05 | PM.PN.1 ---
Exam Vital Signs (past 8 hours): - 12/07/17 05:30 12/07/17 07:15 Temperature 98.1 F 97.3 F L Pulse Rate 55 L 61 Respiratory Rate 16 16 Blood Pressure 162/65 H 142/64 H Pulse Oximetry 96 99 Oxygen Delivery Method Room Air Oxygen Flow Rate 0 Objective Labs Result Diagrams: 12/04/17 05:53 Assessment & Plan Plan: Assessment/Plan Narrative: Patient is admitted after surgery. Patient has been stable and progressing with physical therapy. Patient is neurovascularly intact on exam. Patient has no signs or symptoms of DVT. Patient's dressing is clean dry and intact. She will require additional mobility training prior to transfer to either SNF or discharge with home health. Will continue current management and mobility training. Quality VTE Deep Vein Thrombosis/Pulmonary Embolism Present on Admission: No
[2017-12-07] MEDS: ACETAMINOPHEN 325 MG TABLET 650 MG PO ×3 (11:30→23:42)
[2017-12-07 12:57] VITALS: BP 107/44; PULSE 74; RESP 16; TEMP 36.5; O2SAT 98
[2017-12-07 15:30] VITALS: BP 129/53; PULSE 57; RESP 17; TEMP 36.5; O2SAT 98
--- NOTE | 2017-12-07 16:18 | PT.IPTN ---
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) Other spondylosis with radiculopathy, lumbar region (12/03/17) Spinal stenosis, lumbar region without neurogenic claudication (12/03/17) Arthrodesis status (12/03/17) Surgery Performed Operation Date: 12/03/17 07:45 Actual Procedures p L3-4,L5-S1 TLIF; L4-5 Lumbar HWR, Explor Fusion; Repeat Laminectomy, L3-4, L4-5,L5-S1 PSF w/Instru - Bonita Sy MD Physical Therapy Treatment Note M2 PT-IP Current Condition Start: 12/03/17 17:12 Freq: NEEDED Status: Active Protocol: Document 12/03/17 16:30 AB (Rec: 12/03/17 17:23 AB [id number]) Physical Therapy Current Condition Current Condition Evaluation Date 12/03/17 Treatment Diagnosis s/p L3-4, L5S1 TLIF; L4-5 revision laminectomy; difficuties in walking Onset Date 12/03/17 Precautions Lumbar Precautions Log Roll No Twisting Limit Bending Lifting Restriction of 10 lbs Gait Belt above Incisional Area M3 PT-IP Subjective Start: 12/03/17 17:12 Freq: NEEDED Status: Active Protocol: Document 12/07/17 15:00 CLB (Rec: 12/07/17 16:18 CLB [id number]) Subjective Physical Therapy Visit Type Type Treatment Note Visit Start Time 15:00 Visit Stop Time 15:23 Total Visit Minutes 23 Number of SENIOR DENTIST Visits 2 Physical Therapy Visit Comments Patient Comments My blood pressure is low. pt agreeable to ambulate Therapy Pain Assessment Pain When Pain Assessed During Mobility Pain Present Pain Present Pain Reported Location Lower Back Intensity 3 Scale Used Numeric (1 - 10) M4 PT-IP Mobility and Gait Start: 12/03/17 17:12 Freq: NEEDED Status: Active Protocol: Document 12/07/17 15:00 CLB (Rec: 12/07/17 16:18 CLB [id number]) PT-Bed Mobility Assessment Rolling Type of Rolling Log Rolling Level of Assist Standby Assistance Supine to Sit Supine to Sit Standby Assistance Sit to Supine Sit to Supine Minimal Assistance Scooting Scooting to Edge of Bed Standby Assistance Scooting Up and Down in Bed Standby Assistance PT-Transfer Assessment Sit to and From Stand Sit to and from Stand Contact Guard Assistance 1 Person Assistance Equipment Transfer Assistive Device 4 Wheeled Walker Transfers Transfer Destination Bed Transfer Technique after ambulation Transfer Ability Level of Assist Contact Guard Assistance Comments Mobility Comments Pt CGA/SBA for all mobility. Gait Assessment Gait Gait Assistance Required: Contact Guard Assist Distance (Feet) (feet) 100 Able to Maintain Weight Bearing Status Yes During Gait Assistive Devices Assistive Device Gait Belt 4 Wheeled Walker Orthotic/Prosthetic Devices or Brace: No Gait Deviations General Gait Pattern Decreased Stride Length Flexed Trunk Factors Limiting Gait Function Factors Limiting Gait Function Decreased Activity Tolerance Decreased Strength Pain Poor Balance Poor Safety Awareness M5 PT-IP Objective Assessments Start: 12/03/17 17:12 Freq: NEEDED Status: Active Protocol: Document 12/05/17 10:07 AB (Rec: 12/05/17 12:34 AB [id number]) Orientation Orientation/Cognition Level of Alertness Alert Orientation Name Age Place Situation Safety Awareness Decreased Safety Awareness Memory Description Short Term Impaired M6 PT-IP Treatment Start: 12/03/17 17:12 Freq: NEEDED Status: Active Protocol: Document 12/06/17 09:00 AB (Rec: 12/06/17 10:58 AB [id number]) Physical Therapy Treatment Education Education Provided Precautions Safety M7 PT-IP Assessment and Plan Start: 12/03/17 17:12 Freq: NEEDED Status: Active Protocol: Document 12/07/17 15:00 CLB (Rec: 12/07/17 16:18 CLB [id number]) PT Summary Assessment and Plan Potential Rehabilitation Potential Good Summary Impairments Pain ROM Strength Balance Bed Mobility Transfers Gait Activity Tolerance Progress Towards Goals Progressing Toward Goals Assessment Summary Pt with low BP when walking with SCOUT SNIPER earlier (107/44). BP taken before ambulation BP 127 /56 and pt had no dizziness or weakness during ambulation. Pt needs Min A of LE with sit- supine. Goals Bed Mobility Goal Standby Assistance Transfer Goal Standby Assistance Front Wheeled Walker Four Wheeled Walker Gait Goal Standby Assistance Front Wheel Walker Four Wheel Walker Gait Distance 100 Other Goals up/down 3 steps with 1 rail SBA Frequency of Treatment Frequency Of Treatment Twice a Day Treatment Plan Physical Therapy Treatment Plan Bed Mobility Training Transfer Training Gait Training Therapeutic Exercise Balance Retraining Post Op Education Discharge Planning Hot or Cold Pack Neuromuscular Re-ed Coordination Retraining Manual Therapy Recommendations To Nursing Amount of Assist Needed 1 Person Assist Discharge Recommendations PT Discharge Recommendations Home with 16/12 Assist SNF Rehab Other Discharge Recommendations Pt will require 24/7 assist if going home.
[2017-12-07 19:45] VITALS: BP 148/55; PULSE 57; RESP 17; TEMP 36.9; O2SAT 96
[2017-12-07 23:30] VITALS: BP 128/51; PULSE 64; RESP 16; TEMP 36.3; O2SAT 97
[2017-12-08] MEDS: OXYCODONE IR 5 MG TABLET PO ×3 (04:08→17:20)
[2017-12-08 04:10] VITALS: BP 160/55; PULSE 68; RESP 18; TEMP 36.3; O2SAT 99
[2017-12-08] MEDS: ACETAMINOPHEN 325 MG TABLET 650 MG PO ×2 (05:42→12:05)
--- NOTE | 2017-12-08 07:29 | PM.PNPO.1 ---
Subjective Date Patient Seen: 12/08/17 Time Patient Seen: 07:29 Interval history: Postop day 5. Patient notes her pain is moderate. Denies fever chills. No nausea vomiting. Patient lives alone and has no assistance at home. Otherwise without complaints this morning. Exam Vital Signs (past 8 hours): - 12/07/17 23:30 12/08/17 04:10 Temperature 97.4 F L 97.3 F L Pulse Rate 64 68 Respiratory Rate 16 18 Blood Pressure 128/51 H 160/55 H Pulse Oximetry 97 99 Oxygen Delivery Method Room Air Oxygen Flow Rate 0 Narrative Exam Narrative: Pleasant 77-year-old female resting comfortably in bed in no apparent distress. Lumbar dressing is clean, dry and intact. Neurovascular status is intact to the bilateral lower extremities. Objective Labs Result Diagrams: 12/04/17 05:53 Assessment & Plan Post-op Postoperative Procedures Operation Date: 12/03/17 07:45 Actual Procedures Side Surgeon p L3-4,L5-S1 TLIF; L4-5 Lumbar HWR, Explor Fusion; Repeat Laminectomy, L3-4, L4-5,L5-S1 PSF w/Instru Bonita Sy MD postop day 5. 1. L3-4, L5-S1 posterolateral and posterior interbody fusion 2. L3-4, L5-S1 posterior interbody cage placement 3. L4-5 posterior non-segmental instrumentation removal 4. L4-5 revision laminectomy with exploration of fusion 5. L3-4, L4-5, L5-S1 posterior segmental instrumentation with pedicle screw placement 6. L4-5 posterolatearl fusion 7. [place] of bone marrow from iliac crest through a separate incision 8. Utilization of microsurgical technique and operating microscope patient progressing as expected. Continue to mobilize with physical therapy. Patient will need correction facility placement or 24/7 care at home per physical therapy. Time Spent With Patient less than 15 minutes Quality VTE Deep Vein Thrombosis/Pulmonary Embolism Present on Admission: No
--- NOTE | 2017-12-08 07:32 | P.PN_ITS ---
Subjective Date Patient Seen: 12/08/17 Time Patient Seen: 07:29 Interval history: Postop day 5. Patient notes her pain is moderate. Denies fever chills. No nausea vomiting. Patient lives alone and has no assistance at home. Otherwise without complaints this morning. Exam Vital Signs (past 8 hours): - 12/07/17 23:30 12/08/17 04:10 Temperature 97.4 F L 97.3 F L Pulse Rate 64 68 Respiratory Rate 16 18 Blood Pressure 128/51 H 160/55 H Pulse Oximetry 97 99 Oxygen Delivery Method Room Air Oxygen Flow Rate 0 Narrative Exam Narrative: Pleasant 77-year-old female resting comfortably in bed in no apparent distress. Lumbar dressing is clean, dry and intact. Neurovascular status is intact to the bilateral lower extremities. Objective Labs Result Diagrams: 12/04/17 05:53 Assessment & Plan Post-op Postoperative Procedures Operation Date: 12/03/17 07:45 Actual Procedures Side Surgeon p L3-4,L5-S1 TLIF; L4-5 Lumbar HWR, Explor Fusion; Repeat Laminectomy, L3-4, L4- 5,L5-S1 PSF w/Instru Bonita Sy MD postop day 5. 1. L3-4, L5-S1 posterolateral and posterior interbody fusion 2. L3-4, L5-S1 posterior interbody cage placement 3. L4-5 posterior non-segmental instrumentation removal 4. L4-5 revision laminectomy with exploration of fusion 5. L3-4, L4-5, L5-S1 posterior segmental instrumentation with pedicle screw placement 6. L4-5 posterolatearl fusion 7. [place] of bone marrow from iliac crest through a separate incision 8. Utilization of microsurgical technique and operating microscope patient progressing as expected. Continue to mobilize with physical therapy. Patient will need care home facility placement or 24/7 care at home per physical therapy. Time Spent With Patient less than 15 minutes Quality VTE Deep Vein Thrombosis/Pulmonary Embolism Present on Admission: No
[2017-12-08 08:00] VITALS: BP 117/63; PULSE 56; RESP 16; TEMP 36.2; O2SAT 98
[2017-12-08] MEDS: DOCUSATE 100 MG CAPSULE PO (08:30)
[2017-12-08] MEDS: ASCORBIC ACID 500 MG TABLET PO (08:30)
[2017-12-08] MEDS: BISACODYL 5 MG TABLET PO (08:31)
--- NOTE | 2017-12-08 10:57 | PC.NURSE ---
Addendum entered by Sumi Quintana R.N. 12/08/17 14:49: dc - per PT, pt safe to go home, son will stay with pt several days, Dixie in to speak to pt and family and they are in agreement, Dixie left msg with Chaka on cell - [phone]. Original Note: Addendum entered by Sumi Quintana R.N. 12/08/17 14:07: MS - after several discussions with PT, SS and Chaka, the phys therapist will eval pt again with son and family to verify that pt is safe to dc home, Dixie will return after a conference in ER and Chaka will be back later this afternoon after a surg to determine status of discharge as no current order in place. Original Note: Addendum entered by Sumi Quintana R.N. 12/08/17 12:00: dc - Chaka Miller dc was for a snf - msg to cell phone [phone] Original Note: Addendum entered by Sumi Quintana R.N. 12/08/17 11:37: DC/MS - Leigh OT in and son arrived, Dixie from SS in to discuss discharge order, safety plan and possible home health, Dixie currently is waiting for home health call back. Original Note: AM NOTE - alert, up with commercial production editor before breakfast and using fww, ambul x [address], gait steady,states pain 6-7 on scale 0/10, it still hurts and hasn't kicked in yet, earlier tylenol given, with breakfast, given 5mg po oxycodone, prefers x1 tab and states it provides adequate relief, discussed constipation and narcotics, added dulcolax tab in addition to colace this am, declines any addl type laxative at this time, ra 96%, hr 70.
--- NOTE | 2017-12-08 10:59 | PT.IPTN ---
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) Other spondylosis with radiculopathy, lumbar region (12/03/17) Spinal stenosis, lumbar region without neurogenic claudication (12/03/17) Arthrodesis status (12/03/17) Surgery Performed Operation Date: 12/03/17 07:45 Actual Procedures p L3-4,L5-S1 TLIF; L4-5 Lumbar HWR, Explor Fusion; Repeat Laminectomy, L3-4, L4-5,L5-S1 PSF w/Instru - Bonita Sy MD Physical Therapy Treatment Note M2 PT-IP Current Condition Start: 12/03/17 17:12 Freq: NEEDED Status: Active Protocol: Document 12/03/17 16:30 AB (Rec: 12/03/17 17:23 AB [id number]) Physical Therapy Current Condition Current Condition Evaluation Date 12/03/17 Treatment Diagnosis s/p L3-4, L5S1 TLIF; L4-5 revision laminectomy; difficuties in walking Onset Date 12/03/17 Precautions Lumbar Precautions Log Roll No Twisting Limit Bending Lifting Restriction of 10 lbs Gait Belt above Incisional Area M3 PT-IP Subjective Start: 12/03/17 17:12 Freq: NEEDED Status: Active Protocol: Document 12/08/17 10:30 CLB (Rec: 12/08/17 10:59 CLB [email or web address]) Subjective Physical Therapy Visit Type Type Treatment Note Visit Start Time 10:30 Visit Stop Time 10:45 Total Visit Minutes 15 Number of BASEBALL GLOVE STUFFER Visits 3 Physical Therapy Visit Comments Patient Comments Pt up in bathroom upon arrival and wanting to take a walk. Therapy Pain Assessment Pain When Pain Assessed During Mobility Pain Present Pain Present Pain Reported Location Lower Back Intensity 6 Scale Used Numeric (1 - 10) Pain Management Techniques Timing of Activity with Medications M4 PT-IP Mobility and Gait Start: 12/03/17 17:12 Freq: NEEDED Status: Active Protocol: Document 12/08/17 10:30 CLB (Rec: 12/08/17 10:59 CLB [id number]) PT-Bed Mobility Assessment Rolling Type of Rolling Log Rolling Level of Assist Standby Assistance Sit to Supine Sit to Supine Minimal Assistance Scooting Scooting Up and Down in Bed Standby Assistance PT-Transfer Assessment Sit to and From Stand Sit to and from Stand Contact Guard Assistance 1 Person Assistance Equipment Transfer Assistive Device 4 Wheeled Walker Transfers Transfer Destination Bed Transfer Technique after ambulation Transfer Ability Level of Assist Contact Guard Assistance Minimal Assistance Gait Assessment Gait Gait Assistance Required: Contact Guard Assist Distance (Feet) (feet) 120 Able to Maintain Weight Bearing Status Yes During Gait Assistive Devices Assistive Device Gait Belt 4 Wheeled Walker Orthotic/Prosthetic Devices or Brace: No Gait Deviations General Gait Pattern Decreased Stride Length Flexed Trunk Factors Limiting Gait Function Factors Limiting Gait Function Decreased Activity Tolerance Decreased Strength Pain Poor Balance Poor Safety Awareness Comments Gait Comments Pt had increase in pain with ambulation. M5 PT-IP Objective Assessments Start: 12/03/17 17:12 Freq: NEEDED Status: Active Protocol: Document 12/05/17 10:07 AB (Rec: 12/05/17 12:34 AB [id number]) Orientation Orientation/Cognition Level of Alertness Alert Orientation Name Age Place Situation Safety Awareness Decreased Safety Awareness Memory Description Short Term Impaired M6 PT-IP Treatment Start: 12/03/17 17:12 Freq: NEEDED Status: Active Protocol: Document 12/06/17 09:00 AB (Rec: 12/06/17 10:58 AB [id number]) Physical Therapy Treatment Education Education Provided Precautions Safety M7 PT-IP Assessment and Plan Start: 12/03/17 17:12 Freq: NEEDED Status: Active Protocol: Document 12/08/17 10:30 CLB (Rec: 12/08/17 10:59 CLB [email or web address]) PT Summary Assessment and Plan Potential Rehabilitation Potential Good Summary Impairments Pain ROM Strength Balance Bed Mobility Transfers Gait Activity Tolerance Progress Towards Goals Progressing Toward Goals Assessment Summary Pt needs Min A of LE with sit- supine. Pt having increase in pain with ambulation. Pt will need additional stair training before d/c. Goals Bed Mobility Goal Standby Assistance Transfer Goal Standby Assistance Front Wheeled Walker Four Wheeled Walker Gait Goal Standby Assistance Front Wheel Walker Four Wheel Walker Gait Distance 100 Other Goals up/down 3 steps with 1 rail SBA Frequency of Treatment Frequency Of Treatment Twice a Day Treatment Plan Physical Therapy Treatment Plan Bed Mobility Training Transfer Training Gait Training Therapeutic Exercise Balance Retraining Post Op Education Discharge Planning Hot or Cold Pack Neuromuscular Re-ed Coordination Retraining Manual Therapy Other Recommendations and Next Treatment caregiver training for bed Focus mobility and stairs. Recommendations To Nursing Amount of Assist Needed 1 Person Assist Discharge Recommendations PT Discharge Recommendations Home with 24/7 Assist SNF Rehab Other Discharge Recommendations Pt will require 24/7 assist if going home.
--- NOTE | 2017-12-08 11:25 | OT.IP.TRT ---
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) Other spondylosis with radiculopathy, lumbar region (12/03/17) Spinal stenosis, lumbar region without neurogenic claudication (12/03/17) Arthrodesis status (12/03/17) Surgery Performed Operation Date: 12/03/17 07:45 Actual Procedures p L3-4,L5-S1 TLIF; L4-5 Lumbar HWR, Explor Fusion; Repeat Laminectomy, L3-4, L4-5,L5-S1 PSF w/Instru - Bonita Sy MD Occupational Therapy Treatment Note M2 OT-IP Current Condition Start: 12/04/17 09:56 Freq: Status: Active Protocol: Document 12/06/17 09:29 ADH (Rec: 12/06/17 09:58 ADH [id number]) Occupational Therapy Current Condition Current Condition Evaluation Date 12/04/17 Treatment Diagnosis L3-L5 lami Diagnosis Onset Date 12/03/17 Post Operative Precautions Lumbar Precautions Log Roll No Twisting Limit Bending Lifting Restriction of 10 lbs Gait Belt above Incisional Area M3 OT- IP Subjective and Pain Start: 12/04/17 09:56 Freq: Status: Active Protocol: Document 12/08/17 13:40 PJM (Rec: 12/08/17 14:00 PJM [id number]) OT- Subjective Occupational Therapy Visit Type Type Treatment Note Visit Start Time 11:52 Visit Stop Time 11:25 Total Visit Minutes 33 Notes Pt's son and dtr law here for education at end of session. Occupational Therapy Visit Comments Patient Comments I want to see my dog. OT Pain Assessment Pain When Pain Assessed After Treatment Pain Present Pain Present Pain Reported Location Lower Back Intensity 4 Scale Used Numeric (1 - 10) Description Aching Pain Behaviors Guarding Management Techniques Re-positioning Timing of Activity with Medications M4 OT- IP ADL's Start: 12/04/17 09:56 Freq: Status: Active Protocol: Document 12/08/17 13:40 PJM (Rec: 12/08/17 14:00 PJM [id number]) OT ADL-Grooming General Evaluation Grooming Ability Standby Assistance Comments OT Grooming Comments for washing hands at sink. Pt declined to wash face or comb hair at this time. OT ADL-Oral Care Comments Oral Care Comments Pt declined this session. OT ADL-Dressing General Eval Upper Body Dressing Ability Independent Lower Body Dressing Ability Independent Comments OT Dressing Comments Pt indep donning /doffing underwear with exhibit carpenter. Pt indep using exhibit carpenter to [facility] socks. Pt able to kaia sock aid with min cues but declined to use one, stating she never wears socks at home. Pt states she wears slip on shoes with no reyna or straps and has long shoe horn at home. Pt has exhibit carpenter. OT ADL-Toileting General Evaluation Toileting Ability Independent Comments OT Toileting Comments after education re: body mechanics OT ADL-Bathing Comments OT Bathing Comments Pt states she showered with nursing on pediatric physical therapy assistant. Pt states she ahs long bath sponge. M6 OT- IP Functional Cognition Start: 12/04/17 09:56 Freq: Status: Active Protocol: Document 12/08/17 13:40 PJM (Rec: 12/08/17 14:00 PJM [id number]) Cognitive Factors Limiting Selfcare Function Cognitive Ability Level of Alertness Alert Attention Span Ability Capable of Focused Attention Capable of Sustained Attention Ability to Follow Commands Able to Follow One Step Commands Safety Awareness Decreased Ability to Apply Precautions Underestimates Need for Assistance Problem Solving Ability Needs Assist to Identify Solutions Cognitive Comments Cognitive Assessment Comments Pt needs min cues to recall and apply lumbar spine precautions during functional tasks; especially ot avoid forward bending. Decreased insight noted into areas where she will need assist at home e.g. taking active dog out on leash. M7 OT- IP Mobility and Balance Start: 12/04/17 09:56 Freq: Status: Active Protocol: Document 12/08/17 13:40 PJM (Rec: 12/08/17 14:00 PJM [id number]) OT- Bed Mobility Assessment Rolling Type of Rolling Log Rolling Roll to Right Level of Assistance Independent Supine to Sit Supine to Sit Assist Independent Scooting Scooting to Edge of Bed Independent OT-Transfer Assessment Sit to and From Stand Sit to and from Stand Standby Assistance Transfers Transfer Ability Standby Assistance Technique Transfer Destination Chair Toilet Transfer Technique Stand Step Pivot Devices Transfer Assistive Devices Gait Belt 4 Wheeled Walker Comments Mobility Comments Pt indep with flat bed mobility, SBA for sit to stand and ambulation to bathroom with her own 4WW. Pt modif indep with toilet transfer using R grab bar. Pt states she has sink next to toilet at home that she uses for light support. OT- Gait Assessment Gait Gait Assistance Required: Standby Assistance Distance (Feet) (feet) 25 Assistive Devices Assistive Device Gait Belt 4 Wheeled Walker OT- Balance Assessment Sitting Balance and Reactions Static Sitting Balance Ability Good Dynamic Sitting Balance Ability Good Standing Balance and Reactions Static Standing Balance Ability Good Dynamic Standing Balance Ability Good Comments Other Balance Tests/Deviations/Treatment no loss of balance during : lower body clothing management M8 OT- IP Objective Assessments Start: 12/04/17 09:56 Freq: Status: Active Protocol: Document 12/04/17 09:29 ADH (Rec: 12/04/17 10:14 ADH [id number]) OT Gross Range of Motion Upper Extremity Range of Motion Assessment Within Functional Limits OT Strength Upper Extremity Strength Assessment Within Functional Limits OT- Coordination Assessment Upper Extremity Finger Tapping Test Within Functional Limits M9 OT- IP Assessment and Plan Start: 12/04/17 09:56 Freq: Status: Active Protocol: Document 12/08/17 13:40 PJM (Rec: 12/08/17 14:00 PJM [id number]) OT Summary Assessment and Plan Summary OT Impairments Pain Bathing Shower Transfers Progress Towards Goals Progressing Toward Goals Assessment Summary Pt SBA to modfied indep with functional mobility and toilet transfers this session. She is indep with toileting, dressing and grooming standing at sink. Pt expressing concern about being alone at night. Provided information to pt/family re: [employer] vs use of cell phone as an emergency call device. Son and daughter in law willing to have pt stay with them after discharge . Son works , but dtr in law available to assist PRN. Recommend home to son's house with family assist for IADLs with HH OT/PT/Bath Aide to increase indep/safety/ endurance with showering, IADLS and progression back to independence in her own home. Goals Grooming Goal Independent Dressing Goal Independent Long Handled Shoe Horn Video Manager Toileting Goal Independent Bathing Goal Standby Assistance Toilet Transfer Goal Independent Shower Transfer Goal Standby Assistance Patient/Caregiver Education Goal Demonstrate Post-Op Precautions Caregiver Independent Assisting Patient Frequency of Treatment Frequency Of Treatment Once a Day Treatment Plan OT Treatment Plan ADL Training Functional Mobility Discharge Recommendations OT Discharge Recommendations Home with Assistance Home Health
--- NOTE | 2017-12-08 12:08 | CM.DPC ---
DCP/continued: Reviewed chart. Patient cleared by therapy to d/c home with HH today. RN/Sumi attempting to reach MD/PA to finalize d/c home order. TIP STRETCHER placed call to Amanda at [facility]. She reports that she has all needed orders and information except for d/c summary. [facility] planning to start services in the home tomorrow. Notified [facility] that MCKAY/Daphne would fax d/c summary when it becomes available. Daphne agreeable. TIP STRETCHER met with patient and family/son at bedside explained CM/SW role. Patient and family all aware and agreeable to d/c home today with HH arranged through [facility]. Provided patient with [facility] brochure and name/number of direct contact [facility]. Patient inquiring about SNF appeal from [facility]. Notified patient that [facility] will be notifying her of any changes patient also instructed to call [facility] with questions pertaining to denial of SNF. Therapy and family in agreement that patient safe to return home. Son reports if needed patient can stay with him and his nearby. Patient reports that she wants to go home. She goes on to add that she is fearful to be alone at night. Son aware and does not anticipate any issues. He will be available as needed. P: Home today with [facility] for . Services scheduled to begin in the home tomorrow 12-09-17. EM Sifuentes
[2017-12-08 13:00] VITALS: BP 166/62; PULSE 74; RESP 18; TEMP 36.5; O2SAT 100
--- NOTE | 2017-12-08 14:10 | PT.IPTN ---
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) Other spondylosis with radiculopathy, lumbar region (12/03/17) Spinal stenosis, lumbar region without neurogenic claudication (12/03/17) Arthrodesis status (12/03/17) Surgery Performed Operation Date: 12/03/17 07:45 Actual Procedures p L3-4,L5-S1 TLIF; L4-5 Lumbar HWR, Explor Fusion; Repeat Laminectomy, L3-4, L4-5,L5-S1 PSF w/Instru - Bonita Sy MD Physical Therapy Treatment Note M2 PT-IP Current Condition Start: 12/03/17 17:12 Freq: NEEDED Status: Active Protocol: Document 12/03/17 16:30 AB (Rec: 12/03/17 17:23 AB [id number]) Physical Therapy Current Condition Current Condition Evaluation Date 12/03/17 Treatment Diagnosis s/p L3-4, L5S1 TLIF; L4-5 revision laminectomy; difficuties in walking Onset Date 12/03/17 Precautions Lumbar Precautions Log Roll No Twisting Limit Bending Lifting Restriction of 10 lbs Gait Belt above Incisional Area M3 PT-IP Subjective Start: 12/03/17 17:12 Freq: NEEDED Status: Active Protocol: Document 12/08/17 14:10 MDD (Rec: 12/08/17 14:22 MDD [email or web address]) Subjective Physical Therapy Visit Type Type Treatment Note Visit Start Time 13:45 Visit Stop Time 14:10 Total Visit Minutes 25 Physical Therapy Visit Comments Patient Comments Pt reports moderate pain, agreeable to participate with therapy and continue with stair training. Therapy Pain Assessment Pain When Pain Assessed During Mobility Pain Present Pain Present Pain Reported Location Lower Back Intensity 4 Scale Used Numeric (1 - 10) Description Aching M4 PT-IP Mobility and Gait Start: 12/03/17 17:12 Freq: NEEDED Status: Active Protocol: Document 12/08/17 10:30 CLB (Rec: 12/08/17 10:59 CLB [email or web address]) PT-Bed Mobility Assessment Rolling Type of Rolling Log Rolling Level of Assist Standby Assistance Sit to Supine Sit to Supine Minimal Assistance Scooting Scooting Up and Down in Bed Standby Assistance PT-Transfer Assessment Sit to and From Stand Sit to and from Stand Contact Guard Assistance 1 Person Assistance Equipment Transfer Assistive Device 4 Wheeled Walker Transfers Transfer Destination Bed Transfer Technique after ambulation Transfer Ability Level of Assist Contact Guard Assistance Minimal Assistance Gait Assessment Gait Gait Assistance Required: Contact Guard Assist Distance (Feet) (feet) 120 Able to Maintain Weight Bearing Status Yes During Gait Assistive Devices Assistive Device Gait Belt 4 Wheeled Walker Orthotic/Prosthetic Devices or Brace: No Gait Deviations General Gait Pattern Decreased Stride Length Flexed Trunk Factors Limiting Gait Function Factors Limiting Gait Function Decreased Activity Tolerance Decreased Strength Pain Poor Balance Poor Safety Awareness Comments Gait Comments Pt had increase in pain with ambulation. M5 PT-IP Objective Assessments Start: 12/03/17 17:12 Freq: NEEDED Status: Active Protocol: Document 12/05/17 10:07 AB (Rec: 12/05/17 12:34 AB [id number]) Orientation Orientation/Cognition Level of Alertness Alert Orientation Name Age Place Situation Safety Awareness Decreased Safety Awareness Memory Description Short Term Impaired M6 PT-IP Treatment Start: 12/03/17 17:12 Freq: NEEDED Status: Active Protocol: Document 12/08/17 14:10 MDD (Rec: 12/08/17 14:22 MDD [id number]) Physical Therapy Treatment Education Education Provided Precautions Post-Op Packet Safety Brace Education Patient Caregiver Other Treatments Other Treatment Performed Performed stair training, Ascended/descended 3 steps x 2 with B UE support on railings . 3 steps with single point cane and 1 person handhold assist and 3 steps with quad cane and 1 person (son) providing handhold assist. Gait training emphasis on posture x 75 feet x 2 w/ 4ww. Practice log rolling in/out of bed. Assist at LE's required for sit to supine. Caregiver training on bed mobility/gait etc. M7 PT-IP Assessment and Plan Start: 12/03/17 17:12 Freq: NEEDED Status: Active Protocol: Document 12/08/17 14:10 MDD (Rec: 12/08/17 14:22 MDD [email or web address]) PT Summary Assessment and Plan Potential Rehabilitation Potential Good Status of Condition at Evaluation Stable Summary Impairments Pain ROM Strength Bed Mobility Progress Towards Goals Progressing Toward Goals Safe For Discharge Goals Met Assessment Summary Pt demonstrating need for min A for sit to supine, SBA for supine to sit. Able to safely ascend/descend steps with handhold assist and quad cane. Pt encouraged to d/c to son' s home for initial few days after surgery as she continues to require some assist with functional mobility. Pt agreeable to this with much deliberation. Goals Bed Mobility Goal Standby Assistance Transfer Goal Standby Assistance Front Wheeled Walker Four Wheeled Walker Gait Goal Standby Assistance Front Wheel Walker Four Wheel Walker Gait Distance 100 Other Goals up/down 3 steps with 1 rail SBA Frequency of Treatment Frequency Of Treatment Twice a Day Treatment Plan Physical Therapy Treatment Plan Bed Mobility Training Transfer Training Gait Training Therapeutic Exercise Balance Retraining Post Op Education Discharge Planning Hot or Cold Pack Neuromuscular Re-ed Coordination Retraining Manual Therapy Other Recommendations and Next Treatment caregiver training for bed Focus mobility and stairs. Recommendations To Nursing Amount of Assist Needed 1 Person Assist Discharge Recommendations PT Discharge Recommendations Home with Assistance Other Discharge Recommendations Pt will require some family assistance at home. Has agreed to d/c to son's home with assistance.
[2017-12-08 15:47] VITALS: BP 120/60; PULSE 66; RESP 18; TEMP 36.6; O2SAT 99
--- NOTE | 2017-12-08 16:44 | CM.DPC ---
DCP/continued: Reviewed chart. Spoke with Amanda at [facility] she confirms that they can see patient at residence tomorrow 12-09-17. Spoke with Christian [facility]aca with [facility]. He reports that he thought patient going to SNF. Notified Christian that SNF denied by [place]. Ayo requesting patient be seen again by therapy for updated recommendation. PT evaluated this afternoon and it was decided that patient would go to her son's upon d/c and HH will begin at his residence. Updated Amanda at [facility] and she will call patient's son for address. Left vm with Christian Baca requesting d/c order. RN updated. P: Home/son's today with home health arranged through [facility]. EM Sifuentes
--- NOTE | 2017-12-08 17:47 | PC.NURSE ---
Discharge paperwork reviewed in dept with pt and son [place]. Pt d/c'd home to f/u with HH with son and dtr in law.
== END 2017-12-08 17:44 | disposition home health service (06) | DRG 454 ==
PROVIDERS: Admitting Provider Orthopaedic Surgery Orthopaedic Surgery of the Spine; PCP Family Medicine; Visit Provider Orthopaedic Surgery Orthopaedic Surgery of the Spine
PROC: 0SG10AJ Fusion of 2 or more Lumbar Vertebral Joints with Interbody Fusion Device, Posterior Approach, Anterior Column, Open Approach (ICD-10-PCS; principal; 2017-12-03 07:45)
DX: M48.061 Spinal stenosis, lumbar region without neurogenic claudication (principal); M96.0 Pseudarthrosis after fusion or arthrodesis; D62 Acute posthemorrhagic anemia; M47.26 Other spondylosis with radiculopathy, lumbar region; Z98.1 Arthrodesis status; M41.86 Other forms of scoliosis, lumbar region
CPT/HCPCS: 36415; 72100; 76001; 85014; 85018; 97116; 97127; 97162; 97165; 97530; 97535; C1776; C9290; J0330; J0690; J1100; J1170; J2060; J2405; J2704; J3010

== ENCOUNTER 2019-02-09 08:29 | Emergency (ER) | payer OTHER, SELFPAY ==
[2019-02-09 08:29] VITALS: BMI 28.5
[2019-02-09 08:40] VITALS: BP 153/76; PULSE 76; RESP 16; TEMP 36.3; O2SAT 99; BMI 25.2
[2019-02-09 08:43] VITALS: BP 153/76; PULSE 87; RESP 22; TEMP 36.9; O2SAT 100
--- NOTE | 2019-02-09 08:44 | ED.WEAKNESS ---
HPI - Weakness General Chief complaint: Weakness Stated complaint: blood pressure issues today Time Seen by Provider: 02/09/19 08:43 Source: patient and family (dayan) Mode of arrival: ambulatory Limitations: no limitations History of Present Illness HPI Narrative: This is an 78-year-old female comes to the emergency department with complaint of feeling weak. Patient states she woke up about 3:00 a.m. this morning. She states her dog woke her up. She states she felt ?weak as a kitten?. Patient was able to get around after sitting for a period of time. She checked her blood pressure with her wrist cuff it showed AFib or irregular heartbeat and told her pressure was 50 systolic. Patient states she feels back to normal now. She states the episode lasted about 2 hours and was just generalized weakness. She denies any headache, she denies any chest pain or pressure, no shortness of breath, no syncope or lightheadedness. She describes possibly some mild nausea but no vomiting. She had some diarrhea yesterday. No other issues with urination. She has had some urinary frequency for 5 times nightly. 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 She has had multiple spinal and orthopedic surgeries but no cardiac stents. She denies any tobacco, alcohol or illicit. She is on warfarin daily and metoprolol which she took this morning. Related Data Home Medications Medication Instructions Recorded Confirmed aspirin 81 mg PO QPM 11/10/17 02/09/19 metoprolol succinate 50 mg PO QPM 02/09/19 02/09/19 warfarin 2.5 mg PO TUTHSA 02/09/19 02/09/19 warfarin 5 mg PO SUMOWEFR 02/09/19 02/09/19 Previous Rx's Medication Instructions Recorded cephalexin [Keflex] 500 mg PO BID #6 cap 02/09/19 furosemide [Lasix] 20 mg PO DAILY #5 tab 02/09/19 Allergies Allergy/AdvReac Type Severity Reaction Status Date / Time pain medications AdvReac Severe Hypertensio Uncoded 11/10/17 09:03 n Review of Systems Review of Systems ROS Unobtainable: All systems reviewed & are unremarkable except as noted in HPI and below Constitutional Constitutional: Denies chills, Denies fever(s), Denies headache(s), Denies lethargy and Denies weakness ENT Ears, Nose, Mouth, and Throat: Denies headache(s) and Denies disequilibrium Cardiovascular Cardiovascular: Denies chest pain, Denies diaphoresis, Denies syncope, Denies rapid heart rate, Reports irregular heart rhythm, Denies lightheadedness, Denies palpitations, Denies dyspnea, Denies dyspnea on exertion and Denies orthopnea Respiratory Respiratory: Denies change in phlegm color, Denies chest congestion, Denies cough, Denies dyspnea, Denies dyspnea on exertion and Denies wheezing Gastrointestinal Gastrointestinal: Denies abdominal pain, Denies change in bowel habits, Denies constipation, Reports diarrhea (yesterday), Denies nausea and Denies vomiting Genitourinary Genitourinary: Denies hematuria, Reports urinary frequency, Reports nocturia, Denies dysuria, Denies flank pain, Denies urinary incontinence, Denies urinary hesitancy and Denies urinary urgency Musculoskeletal Musculoskeletal: Denies numbness Neurologic Neurologic: Denies syncope, Denies headache(s), Denies focal weakness, Denies numbness, Denies sensory deficit, Denies disequilibrium and Denies weakness Endocrine Endocrine: Denies palpitations Allergic/Immunologic Allergic/Immunologic: Denies wheezing [facility] Medical History Anemia (Acute) Carotid stenosis (Acute) Easy bruisability (Acute) Fragile skin (Acute) Heart murmur (Acute) History of hysterectomy (Acute) HTN (hypertension) (Acute) Melanoma (Acute) Numbness and tingling of both feet (Acute) Retinal vascular occlusion, left eye (Acute) Rosacea (Acute) Surgical History History of arthroplasty of left knee (Acute) History of lumbar surgery (Acute) Hx of appendectomy (Acute) Hx of arthroscopy of right knee (Acute) Hx of gastric bypass (Acute) Hx of hand surgery (Acute) S/P epidural steroid injection (Acute) Social History household members: none Smoking Status: Never smoker alcohol intake: never Social History household members: none Smoking Status: Never smoker alcohol intake: never Exam Narrative Exam Narrative: GENERAL: Alert and oriented x three, well-nourished, well-appearing female in no acute distress. Patient ambulated through the department. HEENT: Head normocephalic, atraumatic, EOMI, pupils reactive, face symmetric, moist mucous membranes NECK: Supple, full range of motion CARDIOVASCULAR: Irregularly irregular rate and rhythm without murmurs, rubs or gallops. RESPIRATORY: Breath sounds equal bilaterally, no wheezes rales or rhonchi. ABDOMEN: Soft, nontender. Normoactive bowel sounds all 4 quadrants. No guarding or rebound, rigidity, no mass : No CVA tenderness EXTREMITIES: Normal range of motion, no clubbing, patient has pedal edema bilaterally, trace edema anterior shins bilaterally. Neurovascularly intact NEUROLOGICAL: Cranial nerves II through XII grossly intact. Moving all extremities SKIN: Warm, dry, no petechiae, no rashes or lesions. Initial Vital Signs Initial Vital Signs: Vital Signs Temperature 97.4 F L 02/09/19 08:40 Pulse Rate 76 02/09/19 08:40 Respiratory Rate 16 02/09/19 08:40 Blood Pressure 153/76 H 02/09/19 08:40 Pulse Oximetry 99 02/09/19 08:40 Course Orders Ordered: Discontinued Medications Sodium Chloride (Normal Saline 0.9%) 1,000 mls @ 150 mls/hr IV CONT AMELIA Vital Signs Vital signs: Vital Signs - 8 hr 02/09/19 08:40 02/09/19 08:43 02/09/19 10:10 Temperature 97.4 F L 98.5 F Pulse Rate 76 87 81 Respiratory Rate 16 22 19 Blood Pressure 153/76 H Blood Pressure [Right Arm] 153/76 H 144/60 H Pulse Oximetry 99 100 MDM - Weakness Lab Data Attestation: I reviewed the patient's lab results. Result diagrams: 02/09/19 09:30 02/09/19 09:30 Labs: Lab Results 02/09/19 02/09/19 02/09/19 Range/Units 09:00 09:30 09:30 WBC 6.6 (4.5-11.0) X10^3/uL RBC 4.32 (4.0-5.2) X10^6/uL Hgb 12.3 (12.0-16.0) g/dL Hct 37.3 (36-46) % MCV 86.4 (80-100) fL MCH 28.5 (26-34) PG MCHC 32.9 (30-36) % RDW 14.4 (11.6-14.8) % Plt Count 217 (150-400) X10^3/uL Neut % (Auto) 70.9 (50-75) % Lymph % (Auto) 19.8 L (25-40) % [place] % (Auto) 5.4 (3-14) % Eos % (Auto) 2.7 (2-4) % Baso % (Auto) 1.2 (0-2) % Neut # (Auto) 4700 (2287-8527) /uL Lymph # (Auto) 1300 (5217-0868) /uL [place] # (Auto) 400 (0-900) /uL Eos # (Auto) 200 (0-450) /uL Baso # (Auto) 100 (0-100) /uL PT 28.5 H (10.1-12.7) SECONDS INR 2.4 H (0.9-1.3) APTT 38 H (26.4-36.2) SECONDS Sodium (137-145) mmol/L Potassium (3.4-5.1) mmol/L Chloride (98-107) mmol/L Carbon Dioxide (22-32) mmol/L BUN (7-17) mg/dL Creatinine (0.52-1.04) mg/dL Estimated GFR (>60) mL/min BUN/Creatinine Ratio (6-22) Glucose (80-110) mg/dL Calcium (8.4-10.2) mg/dL Total Bilirubin (0.2-1.3) mg/dL AST (14-36) IU/L ALT (9-52) IU/L Alkaline Phosphatase (38-126) U/L Total Creatine Kinase (30-135) U/L CK-MB (CK-2) CK-MB (CK-2) Rel Index Troponin I (0.01-0.034) ng/mL B-Natriuretic Peptide 292 H (<100) Total Protein (6.3-8.2) g/dL Albumin (3.5-5.0) g/dL Globulin (1.7-4.1) g/dL Albumin/Globulin Ratio (1.0-2.8) Lipase (23-300) U/L Urine RBC 5-10/hpf H (0-5/HPF) Urine WBC 5-10/hpf H (0-5/HPF) Ur Squamous Epith Cells 5-10 /hpf H (0-5/HPF) Urine Bacteria Few (2-10) H (None) Ur Culture Indicated? Cult not indicated 02/09/19 Range/Units 09:30 WBC (4.5-11.0) X10^3/uL RBC (4.0-5.2) X10^6/uL Hgb (12.0-16.0) g/dL Hct (36-46) % MCV (80-100) fL MCH (26-34) PG MCHC (30-36) % RDW (11.6-14.8) % Plt Count (150-400) X10^3/uL Neut % (Auto) (50-75) % Lymph % (Auto) (25-40) % [place] % (Auto) (3-14) % Eos % (Auto) (2-4) % Baso % (Auto) (0-2) % Neut # (Auto) (4659-9213) /uL Lymph # (Auto) (3380-9358) /uL [place] # (Auto) (0-900) /uL Eos # (Auto) (0-450) /uL Baso # (Auto) (0-100) /uL PT (10.1-12.7) SECONDS INR (0.9-1.3) APTT (26.4-36.2) SECONDS Sodium 140 (137-145) mmol/L Potassium 4.6 (3.4-5.1) mmol/L Chloride 106 (98-107) mmol/L Carbon Dioxide 24 (22-32) mmol/L BUN 29 H (7-17) mg/dL Creatinine 1.10 H (0.52-1.04) mg/dL Estimated GFR 47.8 L (>60) mL/min BUN/Creatinine Ratio 26.4 H (6-22) Glucose 103 (80-110) mg/dL Calcium 9.2 (8.4-10.2) mg/dL Total Bilirubin 0.5 (0.2-1.3) mg/dL AST 27 (14-36) IU/L ALT 14 (9-52) IU/L Alkaline Phosphatase 104 (38-126) U/L Total Creatine Kinase 73 (30-135) U/L CK-MB (CK-2) TNP CK-MB (CK-2) Rel Index TNP Troponin I < 0.012 (0.01-0.034) ng/mL B-Natriuretic Peptide (<100) Total Protein 7.0 (6.3-8.2) g/dL Albumin 3.9 (3.5-5.0) g/dL Globulin 3.1 (1.7-4.1) g/dL Albumin/Globulin Ratio 1.3 (1.0-2.8) Lipase 203 (23-300) U/L Urine RBC (0-5/HPF) Urine WBC (0-5/HPF) Ur Squamous Epith Cells (0-5/HPF) Urine Bacteria (None) Ur Culture Indicated? Urine Dip Bedside Urine Glucose Negative Bedside Urine Bilirubin - Negative Bedside Urine Ketone - Negative Urine Specific [place] 1.015 Bedside Urine Occult Blood + Bedside Urine pH 6.0 Bedside Urine Protein - Negative Bedside Urine Urobilinogen +/- 1mg Bedside Urine Nitrite - Negative Bedside Urine Leukocytes ++ 125 Esterase Imaging Data Chest x-ray: Radiologist's impression: Pia Silva 78 [address] [place] [address] XRay Report Signed Patient: Pia Silva [facility]#: [id number] : 1940cct:[id number] Age/Sex: 78 / FDate of Service: 02/09/19 Loc: ED Accession Number: [id number] Procedure: XR chest 1V Ordering Provider: Karen Abarca D.O. PROCEDURE: XR CHEST 1V INDICATIONS: blood pressure issues, irregular heartbeat TECHNIQUE: One view of the chest was acquired. COMPARISON: [facility], , L-SPINE 2-3 VIEWS, 01/25/2016, 12:31. [facility], , CHEST 1 VIEW, 09/22/2014, 13:19. FINDINGS: Surgical changes and devices: A pacer device is seen. The leads are seen seen in there expected positions. Cholecystectomy clips are seen. There is partial visualization of lumbar spine fixation hardware. Lungs and pleura: Lungs are clear. No pleural effusions or pneumothorax. Mediastinum: The cardiac contours are within normal limits. The aorta demonstrates calcification and tortuosity. Bones and chest wall: No suspicious bony lesions. Age-appropriate bony degenerative changes are seen. Overlying soft tissues appear unremarkable. IMPRESSION: No acute cardiopulmonary process is seen. Postoperative and degenerative changes are seen. Dictated by: Leonardo Gonsales M.D. on 02/09/2019 at 9:22 Approved by: Leonardo Gonsales M.D. on 02/09/2019 at 9:24 ECG Data Attestation: I personally reviewed and interpreted this ECG as follows: Interpretation: atrial paced rhythm patient has rate of 74 P are 200, QRS 87 QTC of 428. nonspecific ST change. Patient has prior EKG from 09/15/2014 which is in sinus rhythm but ST segments appear similar. [facility] Narrative Medical decision making narrative: Patient comes in with complaint of weakness that has resolved. She has not had any other symptoms other than some swelling in her lower extremities. Creatinine is at 1.1 but unable to verify if this is her normal baseline or and elevation. BNP is slightly elevated at 292 with no priors for comparison, negative troponin. Lactic lytes are otherwise normal. Patient is BUN is mildly elevated. Her CBC does not show any leukocytosis, she has no anemia or low platelets. Lymphs are 19.8%. INR is at 2.4 which is appropriate therapeutic range for her. Urine does show some leukocyte esterase but no nitrates with with possibly a few bacteria. Sent for culture. Discussed with patient as she has had some slight worsening edema in her lower extremities I would give her a very short course of Lasix to see if this improves but she needs close follow-up of her renal function. I would also give her a short course of antibiotics as she has had frequency and likely has a clinical UTI. Patient has appointment today with Dr. Dwyer, asked to keep her appointment and discuss plan with cardiology. Discharge Plan Departure Patient Disposition: Home Clinical Impression: Weakness, Bilateral edema of lower extremity, Acute UTI Discharge Date/Time: 02/09/19 10:36 Instructions: DI for Urinary Tract Infection (UTI) Activity Restrictions/Additional Instructions: Follow-up with your distribution supervisor today at your scheduled appointment. Discussed with her distribution supervisor if they feel that you should continue the Lasix or alter your medications in any way. Your creatinine today is 1.1, have no priors for comparison discussed with your distribution supervisor they may have prior labs available and let you know if this is your normal baseline or and elevation. I would recommend taking antibiotics until gone. Return to the emergency department for fevers greater 100.4 F, new lightheadedness, passing out, recurrent or persistent weakness, new chest pain, shortness of breath, rapidly worsening swelling of her lower extremities or other new or concerning symptoms. Prescriptions: New cephalexin [Keflex] 500 mg capsule 500 mg PO BID Qty: 6 RF: 0 furosemide [Lasix] 20 mg tablet 20 mg PO DAILY Qty: 5 RF: 0 No Action metoprolol succinate 50 mg tablet extended release 24 hr 50 mg PO QPM RF: 0 warfarin 5 mg tablet 2.5 mg PO TUTHSA RF: 0 warfarin 5 mg tablet 5 mg PO SUMOWEFR RF: 0 aspirin 81 mg Tablet,Delayed Release (Dr/Ec) 81 mg PO QPM RF: 0 Referrals: Felipe Bradley DO [Primary Care Provider] -
--- NOTE | 2019-02-09 09:20 | PC.NURSE ---
Patient with bilateral +1 pitting edema in ankles
[2019-02-09 09:46] LABS: Add Manual Diff / Slide Review NO; Basophils Absolute Auto 100 /uL (0-100); Basophils Percent Auto 1.2 % (0-2); Eosinophils Absolute Auto 200 /uL (0-450); Eosinophils Percent Auto 2.7 % (2-4); Hematocrit 37.3 % (36-46); Hemoglobin 12.3 g/dL (12.0-16.0); Lymphocytes Absolute Auto 1300 /uL (1100-4500); Lymphocytes Percent Auto 19.8 % (25-40); Mean Corpuscular HGB Conc 32.9 % (30-36); Mean Corpuscular Hemoglobin 28.5 PG (26-34); Mean Corpuscular Volume 86.4 fL (80-100); Monocytes Absolute Auto 400 /uL (0-900); Monocytes Percent Auto 5.4 % (3-14); Neutrophils Absolute Auto 4700 /uL (1500-7000); Neutrophils Percent Auto 70.9 % (50-75); Platelet Count 217 X10^3/uL (150-400); Red Blood Cell Count 4.32 X10^6/uL (4.0-5.2); Red Cell Distribution Width 14.4 % (11.6-14.8); White Blood Cell Count 6.6 X10^3/uL (4.5-11.0)
[2019-02-09 09:48] LABS: INR 2.4 (0.9-1.3); Prothrombin Time 28.5 SECONDS (10.1-12.7)
[2019-02-09 09:51] LABS: PTT Partial Thromboplastin Tim 38 SECONDS (26.4-36.2)
[2019-02-09 09:53] LABS: Alanine Aminotransferase 14 IU/L (9-52); Albumin 3.9 g/dL (3.5-5.0); Albumin Globulin Ratio 1.3 (1.0-2.8); Alkaline Phosphatase 104 U/L (38-126); Aspartate Aminotransferase 27 IU/L (14-36); BUN Creatinine Ratio 26.4 (6-22); Bilirubin Total 0.5 mg/dL (0.2-1.3); Blood Urea Nitrogen 29 mg/dL (7-17); Calcium 9.2 mg/dL (8.4-10.2); Carbon Dioxide 24 mmol/L (22-32); Chloride 106 mmol/L (98-107); Creatine Kinase 73 U/L (30-135); Estimated Glomerular Filt Rate 47.8 mL/min (>60); Globulin 3.1 g/dL (1.7-4.1); Glucose 103 mg/dL (80-110); HEMOLYSIS < 15 (0-50); Lipase 203 U/L (23-300); Potassium 4.6 mmol/L (3.4-5.1); Sodium 140 mmol/L (137-145)
[2019-02-09 10:04] LABS: Troponin I < 0.012 ng/mL (0.01-0.034)
[2019-02-09 10:06] LABS: B Type Natriuretic Peptide 292 (<100)
[2019-02-09 10:10] VITALS: BP 144/60; PULSE 81; RESP 19
[2019-02-09 10:20] LABS: Bacteria Urine Few (2-10); Culture Indicated Urine Cult Not Indicated; RBC Urine 5-10/HPF (0-5/HPF); Squamous Epithelial Cell Urine 5-10 /HPF (0-5/HPF); WBC Urine 5-10/HPF (0-5/HPF)
[2019-02-09 10:36] VITALS: BP 143/55; PULSE 77; RESP 16; TEMP 36.3; O2SAT 99
== END 2019-02-09 10:36 | disposition home or self-care (01) ==
PROVIDERS: Emergency Provider Emergency Medicine; PCP Family Medicine
DX: N39.0 Urinary tract infection, site not specified (principal); R60.0 Localized edema; R53.1 Weakness
CPT/HCPCS: 71045; 80053; 81003; 81015; 82550; 83690; 83880; 84484; 85025; 85610; 85730; 93005; 99283; 99285

== ENCOUNTER → 2019-03-02 07:49 | Outpatient (CLI) | payer OTHER, SELFPAY ==
[2019-02-09 08:29] VITALS: BMI 28.5
--- NOTE | 2019-03-02 | DI.US.S_ITS ---
PROCEDURE: US ARTERIAL DUPLEX LE BI INDICATIONS: PERIPHERAL VASCULAR DISEASE, UNSPECIFIED TECHNIQUE: Color and pulse Doppler interrogation was performed of both lower extremity arterial systems, with image documentation. COMPARISON: None. FINDINGS: Right lower extremity: Common femoral artery: 182 cm/sec, with triphasic flow. Deep femoral artery: 121 cm/sec, with triphasic flow. Proximal superficial femoral artery: 119 cm/sec, with biphasic flow. Mid superficial femoral artery: 99 cm/sec, with biphasic flow. Distal superficial femoral artery: 84 cm/sec, with biphasic flow. Popliteal artery: 64 cm/sec, with biphasic flow. Posterior tibial artery: 98 cm/sec, with biphasic flow. Anterior tibial artery/dorsalis pedis: 91 cm/sec, with biphasic flow. Wilson-scale imaging description: Scattered calcifications are present. Left lower extremity: Common femoral artery: 177 cm/sec, with triphasic flow. Deep femoral artery: 124 cm/sec, with biphasic flow. Proximal superficial femoral artery: 157 cm/sec, with biphasic flow. Mid superficial femoral artery: 109 cm/sec, with biphasic flow. Distal superficial femoral artery: 84 cm/sec, with biphasic flow. Popliteal artery: 80 cm/sec, with biphasic flow. Posterior tibial artery: 75 cm/sec, with biphasic flow. Anterior tibial artery/dorsalis pedis: 59 cm/sec, with biphasic flow. Wilson-scale imaging description: Scattered calcifications. IMPRESSION: No hemodynamically significant stenosis. Dictated by: Karen Ballard M.D. on 03/02/2019 at 18:09 Approved by: Karen Ballard M.D. on 03/02/2019 at 18:12
--- NOTE | 2019-03-02 | DI.US.S_ITS ---
PROCEDURE: US VENOUS INSUFFICIENCY BILAT INDICATIONS: PERIPHERAL VASCULAR DISEASE, UNSPECIFIED TECHNIQUE: Real time scanning was performed of the lower extremity venous system, with imaging documentation, as well as Color and pulse Doppler interrogation. COMPARISON: [facility], , US ARTERIAL DUPLEX LE , 03/02/2019, 8:12. FINDINGS: RIGHT LOWER EXTREMITY: The deep veins are normally compressible, and free of intraluminal thrombus. Color and pulse Doppler demonstrate normal intravascular flow. There is normal augmentation with distal compression maneuver. Greater saphenous vein (GSV): Saphenofemoral junction (SFJ): 7 mm. No reflux. Proximal GSV: 3 mm. No reflux. Mid GSV: 5 mm. No reflux. Distal GSV: 3 mm. No reflux. Calf GSV: 1 mm within the proximal calf. Not seen within the mid calf/unable to follow distally. Anterior accessory SV (AASV): 2 mm Posterior accessory SV (PASV): 2 mm. There is a prominent varicosity identified adjacent to the right greater saphenous vein in the superior thigh, measuring up to 4 mm in diameter. There is mild soft tissue edema of the right calf adjacent the right greater saphenous vein. Small saphenous vein (SSV): 2 mm. No reflux. Vein of Giacomini (posterior thigh connection between GSV and SSV): Anatomic variant not seen. Engineer Third Assistant veins: There is a 2 mm diameter philosophy instructor vein within the right calf approximately 7 cm below the knee and 8 cm lateral. LEFT LOWER EXTREMITY: The deep veins are normally compressible, and free of intraluminal thrombus. Color and pulse Doppler demonstrate normal intravascular flow. There is normal augmentation with distal compression maneuver. Greater saphenous vein (GSV): Saphenofemoral junction (SFJ): 5 mm. No reflux. Proximal GSV: 2 mm. No reflux. Mid GSV: 2 mm. No reflux. Distal GSV: 2 mm. No reflux. Calf GSV: 2 mm. No reflux. Anterior accessory SV (AASV): 2 mm. Posterior accessory SV (PASV): 3 mm. Small saphenous vein (SSV): 2 mm. No reflux. Vein of Giacomini (posterior thigh connection between GSV and SSV): Anatomic variant not seen. Engineer Third Assistant veins: None identified. IMPRESSION: 1. No ultrasound evidence of deep venous thrombosis of the bilateral lower extremities. 2. Dilation of the right great saphenous vein at the saphenofemoral junction to a diameter of 7 mm, and at the mid great saphenous vein to a diameter of 5 mm. 3. Dilation of the left great saphenous vein at the saphenofemoral junction to a diameter of 5 mm. 4. 2 mm philosophy instructor vein within the right calf. 5. 4 mm varicosity in the right superior thigh adjacent to the right great saphenous vein. Dictated by: Srini Payne M.D. on 03/02/2019 at 17:58 Approved by: Srini Payne M.D. on 03/02/2019 at 18:13
== END ==
PROVIDERS: Family Provider Family Medicine; PCP Family Medicine; Visit Provider Internal Medicine Cardiovascular Disease
DX: I73.9 Peripheral vascular disease, unspecified (principal); I83.891 Varicose veins of right lower extremity with other complications
CPT/HCPCS: 93925; 93970